=== PATIENT | female | born 1945 | race Caucasian/White ===

== ENCOUNTER 2024-06-04 12:17 | Outpatient (CLI) | payer MEDICARE, OTHER, SELFPAY ==
--- NOTE | ~2024-06-04 | NM_ITS ---
EXAMINATION: NISREEN alegria renal scan DATE: 06/04/2024 14:18 INDICATION: Hydronephrosis TECHNIQUE: 8.1 mCi Tc-99m MAG3 was administered IV. 40 mg furosemide was administered IV immediately afterward. The patient was scanned in the supine position. A posterior abdominal radionuclide angiog ana was obtained. A subsequent time course of static images of the kidneys, ureters, and bladder was obtained. COMPARISON: None FINDINGS: The posterior abdominal radionuclide angiogram and sequential static images show normal size, positio n, and morphology of the right kidney. No evident left renal activity with severe hydronephrosis and severe atrophy noted on report from outside institution CT dated 08/16/2023, images of which are unava ilable for comparison. Peak renal parenchymal uptake was indeterminate min in left kidney and 3.5 min in right kidney (normal peak 3-5 minutes). The relative early renal uptake was calculated at 5% on the left and 95% on the right (<40% is abnormal) however this likely represents scattered activity fr om the adjacent liver with no discernible activity above baseline at the location of the left kidney. No abnormalities of the ureters or bladder are seen. T1/2 for clearance of activity from the right kidney and proximal collecting system was 7 minutes wit h 1600 counts and 9 minutes and 800 counts at 16 minutes. Notes on interpretation: T1/2 <10 minutes is normal, 10-15 minutes is low grade obstruction of questi onable clinical significance, 15-20 minutes is partial obstruction that is likely clinically signific ant, >20 minutes is high grade obstruction. Note that false positives may be seen with supine positio catrachita, dehydration, severely dilated nonobstructed kidney, atonic collecting system, poor renal functi on, and chronic furosemide use. IMPRESSION: 1. No discernible left renal function with severe hydronephrosis and severe atrophy noted at the lef t kidney on CT report from outside institution, images which has not been submitted for comparison. 2. No delay in activity clearance from the right kidney to suggest fixed obstruction. Reviewed, dictated and finalized at location A. IMPRESSION: 1. No discernible left renal function with severe hydronephrosis and severe at rophy noted at the left kidney on CT report from outside institution, images wh ich has not been submitted for comparison. 2. No delay in activity clearance from the right kidney to suggest fixed obstr uction.
--- OUTSIDE RECORDS SUMMARY | 2024-06-04 12:51 | XMS_ITS | Clinical Summary ---
Author Organization [facility] Address [address] [place] [address] Care Team Providers Care Department Of Mathematics Chair Name Role Phone Lb Benitez MD Primary Care Provider [phone] Source Comments [facility],non-owned Affiliates and Associated Physician Practices is amultiple site organization consisting of ambulatory clinics and hospital sitesin [place], [place], [place] and [place]. This disclosure is being madepursuant to the Care Everywhere program and may not contain all information available regarding this patient. Last updated 17.[facility] Social History Tobacco Use Types Packs/Day Years Used Date Smoking Tobacco: Former Cigarettes Smokeless Tobacco: Never Tobacco Cessation:Counseling Given: Not Answered PHQ-2 Answer Date Recorded PHQ2 TOTAL SCORE 0 10/05/2022 Sex and Gender Information Value Date Recorded Sex Assigned at Female 05/27/2022 11:55 AM CDT Gender Identity Female 05/27/2022 11:55 AM CDT Sexual Orientation Straight 05/27/2022 11 :55 AM CDT Plan of Treatment Health Maintenance Due Date Last Done Comments BONE DENSITY TESTING 1945 DTAP/TDAP/TD VACCINES (1 - Tdap) 10/07/1962 PNEUMOCOCCAL VACCINE 50+ (1 of 1 - PCV) 10/07/1993 ZOSTER VACCINE (1 of 2) 10/07/1993 Respiratory Syncytial Virus (RSV) Vaccine Pt: or over 60 yrs (1 - 1-dose 75+ series) 10/07/2018 COVID-19 VACCINE (4 2023-2 5 season) 2023 10/25/2021, 05/19/2020, 04/26/2020 INFLUENZA VACCINE (#1) 2023 DEPRESSION SCREENING 03/18/2024 10/10/2022 MEDICARE AWV CALENDAR YEAR 2024 HEPATITIS B VACCINE Aged Out No longe r eligible based on patient's age to complete this topic HIB VACCINE Aged Out No longer eligi ble based on patient's age to complete this topic HPV VACCINE Aged Out No longer eligi ble based on patient's age to complete this topic MENINGOCOCCAL (Group B) VACCINE SHARED DECISION-MAKING Aged Out No longer eligible based on patient's age to complete this topic MENINGOCOCCAL GROUPS A/C/Y/W VACCINE Aged Out No longer eligible b ased on patient's age to complete this topic Care Teams Department Of Mathematics Chair Relationship Specialty Start Date End Date Lb Benitez MD [address] [place] [address] PCP - General Internal Medicine 09/19/22
--- OUTSIDE RECORDS SUMMARY | 2024-06-04 12:51 | XMS_ITS | Encounter Summary ---
Author Organization [facility] Care Team Providers Care Drill Press Operator Name Role Phone Bill Thomas MD Primary Care Provider + Truman Patel MD Unavailable [phone] Merlin Ambriz MD Unavailable [phone] Bill Thomas MD Primary Care Provider + Vineet Aviles MD Primary Care Provider [phone] Encounter Details Date Type Department Care Team (Latest Contact Info) Description 08/08/2017 Orders Only [facility]IN[facility] Provider, MD Josse [address] [place] [address] Social History Tobacco Use Types Packs/Day Years Used Date Smoking Tobacco: Never Assessed Comments Unknown Sex and Gender Information Value Date Recorded Sex Assigned at Not on file Legal Sex Female 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 Historical Provider [facility] SUSH[facility] TIMMONS Final Result documented in this encounter Visit Diagnoses Not on filedocumented in this encounter Care Teams Drill Press Operator Relationship Specialty Start Date End Date Bill Thomas MD [address] [place] [address] PCP - General Internal Medicine 08/06/18 04/07/19 Bill Thomas MD [address] [place] [address] PCP - General Internal Medicine 04/08/19 11/22/21 Vineet Aviles MD [address] [place] [address] PCP - General Family Medicine 11/23/21 Truman Patel MD [address] [place] [address] Referring Physician Internal Medicine 09/23/18 Merlin Ambriz MD [address] [place] [address] Referring Physician Gastroenterology 09/23/18 documented as of this encounter
--- OUTSIDE RECORDS SUMMARY | 2024-06-04 12:51 | XMS_ITS | Encounter Summary ---
Author Organization [facility] Address [address] [place] [address] Care Team Providers Care Milling Machine Operator Gear Name Role Phone Kaveh Guardado MD Unavailable Truman Patel MD Unavailable [phone] Vineet Aviles MD Primary Care Provider [phone] Encounter Details Date Type Department Care Team (Late st Contact Info) Description 04/03/2024 Prep for Procedure [facility] [address], [place] [id number] Thor Pike MD [facility] [address], [place] [id number] Social History Tobacco Use Types Packs/Day Years Used Date Smoking Tobacco: Former Cigarettes Q uit: 1970 Smokeless Tobacco: Former Alcohol Use Standard Drinks/Week Comments Yes 0 (1 standard drink = 0.6 oz pur e alcohol) occasionally Humiliation, Afraid, Rape, and Kick questionnair e Answer Date Recorded Within the last year, have y ou been afraid of your partner or ex-partner? No 12/31/2022 Within the last year, have y ou been humiliated or emotionally abused in other ways by your partner or ex-partner? No Within the last year, have y ou been kicked, hit, slapped, or otherwise physically hurt by your partner or ex-partner? No 12/31/2022 Within the last year, have y ou been raped or forced to have any kind of sexual activity by your partner or ex-partner? No 12/31/2022 Overall Financial Resource Strain (CARDIA) Answe r Date Recorded How hard is it for you to pa y for the very basics like food, housing, medical care, and heating? Not hard at all 12/31/2022 PHQ-2 Answer Date Recorded Patient Health Questionnaire-2 Score 0 07/09/2023 Hunger Vital Sign Answer Date Recorded Within the past 12 months, y ou worried that your food would run out before you got the money to buy more. Never true 01/01/20 Within the past 12 months, t he food you bought just didn't last and you didn't have money to get more. Never true 12/31/2022 PRAPARE - Transportation Answer Date Re corded In the past 12 months, has l ack of transportation kept you from medical appointments or from getting medications? No 12/16 In the past 12 months, has l ack of transportation kept you from meetings, work, or from getting things needed for daily living? No 12/31/2022 Housing Stability Vital Sign Answer Neel e Recorded In the last 12 months, was t here a time when you were not able to pay the mortgage or rent on time? No 12/31/2022 In the last 12 months, how many places have you lived? 1 12/31/2022 In the last 12 months, was t here a time when you did not have a steady place to sleep or slept in a nursing home (including now)? 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 Answer Date of Assessment Author Status No 12/30/2022 6:15 PM CDT Love Rubin RN Active * Do you have serious difficulty walking or climbing stairs? Answer Date of Assessment Author Status No 12/30/2022 6:15 PM CDT Love Rubin RN Active * Do you have difficulty dressing or bathing? Answer Date of Assessment Author Status No 12/30/2022 6:15 PM CDT Love Rubin RN Active * Because of a physical, mental, or emotional condition, do you have difficulty doing errands alone such as visiting a doctor's office or shopping? Answer Date of Assessment Author Status No 12/30/2022 6:15 PM CDT Love Rubin RN Active documented as of this encounter Mental Status * Because of a physical, mental, or emotional condition, do you have serious difficulty concentrating, remembering, or making decisions? Answer Entry Date Author Status No 12/30/2022 6:15 PM CDT Love Rubin RN Active documented in this encounter Plan of Treatment Upcoming Encounters Date Type Department Care Team (Late st Contact Info) Description 06/09/2024 3:00 PM CDT Office Visit [facility] [address], [address] [facility] [place] [id number] Nader Borges MD [address] [facility] [place] [address] 07/13/2024 10:45 AM CDT Office Visit [facility] [address] [facility] [place], [place] [id number] Truman Patel MD [address] [facility] [place], [place] [id number] Nancy Mejia PA [address] [facility] [address], [address] [place], [place] [address] 10/19/2024 3:00 PM CDT Appointment [facility] [address] [address] Thor Pike MD [address] [place], [place] [id number] documented as of this encounter Goals Goal Patient Goal Type Associated Problems Recent Progress Patient-Stated? Author Patient will return to prior living situation and remain independent in ADLs upon discharge from hospital Lifestyle No Rhina Callejas, NAT INSTRUCTOR documented as of this encounter Visit Diagnoses Not on filedocumented in this encounter Care Teams Milling Machine Operator Gear Relationship Specialty Start Date End Date Vineet Aviles MD [address] [place] [address] PCP - General FAMILY PRACTICE 03/18/22 Kaveh Guardado MD [address] [place], [place] [address] [place] Dietary Supervisor CLINICAL CARDIAC ELECTROPHYSIOLOGY 06/25/17 Truman Patel MD [address] [place], [place] [address] Janet Dietary Supervisor INTERVENTIONAL CARDIOLOGY 07/16/17 documented as of this encounter
--- OUTSIDE RECORDS SUMMARY | 2024-06-04 12:51 | XMS_ITS | Referral Summary ---
Author Organization [facility] [address] [facility] mariann Address [address] [facility] [place] [address] Care Team Providers Care Grinder And Plater Name Role Phone Truman Patel MD Unavailable [phone] Merlin Ambriz MD Unavailable [phone] Vineet Aviles MD Primary Care Provider [phone] Encounters Date Type Department Care Team Description 05/06/[address] [facility] Accountable Care Organization [address] [place] [id number] Yasmin Hastings 04/02/2024 12:08 PM MOLD MOVER - 04/02/2024 11:59 PM MOLD MOVER Hospital Encounter [facility] [address] [place] [address] Dyspnea, unspecified type Discharge Disposition: Discharge to home or self care 04/02/[address] [facility] Medical Group Pulmonary [address] [phone] Christian An MD Med Management 04/02/2024 10:30 AM MOLD MOVER Office Visit [facility] Pulmonary [place] [address] [place] [address] [place] [phone] Christian An MD Dyspnea, unspecified type (Primary Dx); Simple chronic bronchitis (HCC); Gastroesophageal reflux disease without esophagitis; Allergic rhinitis due to pollen, unspecified seasonality 03/31/2024 11:30 AM MOLD MOVER Office Visit [facility] at [address] [place] [address] Vineet Aviles MD Medicare annual wellness visit, subsequent (Primary Dx) 03/30/2024 Telephone [facility] Medicine at [address] [place] [address] Vineet Aviles MD Appointment Request from Last 3 Months Allergies Active Allergy Reactions Criticality Noted Date Comments Pentobarbital Hives Medium 10/29/2017 Pentobarbital Sodium Unknown 08/04/2018 Prednisone Nausea & Vomiting Low 08/26/2015 Medications red yeast rice 600 mg capsule Take 600 mg by mouth daily Active cyanocobalamin (Vitamin B-12) 500 mcg tabletIndication s:Prevention of Vitamin B12 Deficiency Take 1 tablet (500 mcg total) by mouth daily Active coenzyme Q10 100 mg capsule Take 1 tablet by mouth daily 8 Active fluticasone propionate (Flonase Allergy Relief) 50 mcg/actuation nasal sprayIndications :Seasonal allergic rhinitis, unspecified trigger Administer 1 spray into each nostril daily 54.6 mL 1 3 Active cilostazoL (PLETAL) 100 mg tabletIndication s:Peripheral vascular disease Take 1 tablet (100 mg total) by mouth 2 (two) times a day 180 tablet 1 3 Active clopidogreL (PLAVIX) 75 mg tabletIndication s:Peripheral vascular disease Take 1 tablet (75 mg total) by mouth daily 90 tablet 1 3 Active cetirizine (ZyrTEC) 10 mg tabletIndication s:Seasonal allergic rhinitis, unspecified trigger Take 1 tablet (10 mg total) by mouth daily 90 tablet 3 3 Active aspirin 81 mg chewable tabletIndication s:Coronary artery disease involving [place] coronary artery of [place] heart without angina pectoris Take 1 tablet (81 mg total) by mouth daily 90 tablet 3 3 Active alendronate (FOSAMAX) 70 mg tablet Take 1 tablet (70 mg total) by mouth every 7 days Take in the morning with a full glass of water, on an empty stomach, and do not take anything else by mouth or lie down for the next 30 min. 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 3 Active nitroglycerin 400 mcg/spray spray 3 Active montelukast (SINGULAIR) 10 mg tablet Take 1 tablet (10 mg total) by mouth nightly 90 tablet 3 3 Active furosemide (LASIX) 20 mg tablet Take 1 tablet (20 mg total) by mouth daily Active Trelegy Ellipta 100-62.5-25 mcg inhalerIndicatio ns:Simple chronic bronchitis (HCC) Inhale 1 puff daily Rinse mouth with water after use, do not swallow 180 each 1 4 Active trospium (SANCTURA) 20 mg tablet Take 1 tablet (20 mg total) by mouth 2 (two) times a day 4 12/17/19 25 Active atenoloL (TENORMIN) 50 mg tabletIndication s:Pulmonary hypertension (HCC),Hypertensi ve heart disease without heart failure Take 1 tablet (50 mg total) by mouth daily 90 tablet 1 4 Active albuterol HFA (PROVENTIL HFA,VENTOLIN HFA,PROAIR HFA) 90 mcg/actuation inhaler Inhale 2 puffs every 6 (six) hours as needed for wheezing 3 each 1 4 01/22/[address] (PROTONIX) 40 mg EC tablet Take 1 tablet (40 mg total) by mouth daily 90 tablet 5 Active Active Problems Problem Noted Date Diagnosed Date Difficulty breathing 04/04/2023 Actinic keratosis 01/16/2023 Overview (01/16/2023): left forearm Asthma with acute exacerbation 01/16/2023 Benign neoplasm of skin of face 01/16/2023 Overview (01/16/2023): Milia, face Expressed after jose with 11 blade Cervical spondylosis 01/16/2023 Cervicalgia 01/16/2023 Dermatitis 01/16/2023 Overview (01/16/2023): 2. Possible staph infection Plan see scan sheet for discharge instructions. Fatigue 01/16/2023 Hyperlipidemia 01/16/2023 Overview (01/16/2023): Last Assessment & Plan: LDL in March 2021 was 106. She is not tolerant of statin therapy. Continue red yeast rice. Migraine headache 01/16/2023 Palpitations 01/16/2023 Severe acute respiratory syn drome coronavirus 2 (SARS-CoV-2) test result unknown 01/16/2023 Urge incontinence of urine 01/16/2023 Verruca 01/16/2023 Overview (01/16/2023): Rt Forehead. Cryo x 1 now Renal cyst 01/16/2023 Actinic keratosis 01/16/2023 Overview (03/31/2024): left forearm left forearm Benign neoplasm of skin of face 01/16/2023 Overview (03/31/2024): Milia, face Expressed after jose with 11 blade Milia, face Expressed after jose with 11 blade Dermatitis 01/16/2023 Overview (03/31/2024): 2. Possible staph infection Plan see scan sheet for discharge instructions. 2. Possible staph infection Plan see scan sheet for discharge instructions. Viral warts 01/16/2023 Overview (03/31/2024): Rt Forehead. Cryo x 1 now Chest pain 12/30/2022 Shortness of breath 11/14/2022 Abnormal PFT 11/14/2022 Primary hypertension 05/13/2022 Memory loss 07/12/2021 Overview (01/16/2023): Last Assessment & Plan: I recommended a neurology referral for memory loss. Age-related osteoporosis monica bill current pathological fracture 04/11/2021 Assessment & Plan (04/11/2021 2:54 PM MOLD MOVER): Had been on fosamax in the past. Tried to get Prolia, but not covered. Insurance covers Forteo. She does not want to do daily injections. Continue calcium and Vitamin D. Tongue burning sensation 05/24/2020 Assessment & Plan (05/24/2020 11:17 AM MOLD MOVER): No signs of mouth thrush. However, pt is on trelegy that can cause it. Will treat with diflucan. Negative depression screening 05/24/2020 At standard risk for fall 05/24/2020 Post herpetic neuralgia 02/10/2020 Assessment & Plan (05/24/2020 11:20 AM MOLD MOVER): Persistent. Gabapentin helps, will refill for prn use. Assessment & Plan (02/10/2020 11:06 AM MOLD MOVER): Broke out almost 4 weeks ago. Rash is healing well. Due to bothersome pain will try gabapentin. I advised patient to start with night does for few days and then add morning dose. As soon as pain improves, can stop taking it. Rotator cuff tendinitis, right 02/10/2020 Assessment & Plan (02/10/2020 11:07 AM MOLD MOVER): Patient can not take NSAID due to being on Plavix. I administered steroid injection today. This will be 1st since onset. Exercise regimen for home stretches provided to patient. Contact our office if no improvement after treatment within 2-3 weeks, develop new symptoms or feeling worse at any point. Pulmonary hypertension 11/05/2019 Assessment & Plan (05/08/2020 9:30 AM MOLD MOVER): Repeat 2D echocardiogram done in December 2019 shows normal RVSP. Assessment & Plan (11/07/2019 5:53 PM CDT): Will repeat 2D echocardiogram with her next visit to reassess her RVSP. Pelvic pressure in female 11/21/2018 History of nicotine dependence 09/23/2018 Assessment & Plan (10/26/2019 12:46 PM CDT): Stable. She has been a nonsmoker since 1970 Assessment & Plan (04/06/2019 1:49 PM MOLD MOVER): Stable Overactive bladder 09/22/2018 Assessment & Plan (04/07/2021 11:13 AM MOLD MOVER): Stable on Myrbetriq Assessment & Plan (10/26/2019 12:45 PM CDT): Stable on Myrbetriq Assessment & Plan (08/14/2019 2:12 PM CDT): Increase myrbetriq from 25 mg to 50 mg a day. Pt can take 2 tablets of 25 mg until will need next refill. Assessment & Plan (04/06/2019 1:48 PM MOLD MOVER): Stable on Myrbetriq Assessment & Plan (09/23/2018 11:57 AM CDT): Stop Dietrol LA. Start Myrbetriq Peripheral vascular disease 09/22/2018 Assessment & Plan (04/07/2021 11:12 AM MOLD MOVER): Stable on Pletal. Follows with Dr. Pike Assessment & Plan (10/26/2019 12:44 PM CDT): Stable on Pletal. Followed by Dr. Pike Assessment & Plan (04/06/2019 1:48 PM MOLD MOVER): Stable on Pletal Assessment & Plan (09/22/2018 12:51 PM CDT): Stable on cilostazol Hypertensive heart disease without heart failure 09/22/2018 Assessment & Plan (04/07/2021 11:12 AM MOLD MOVER): Stable on atenolol Assessment & Plan (10/26/2019 12:41 PM CDT): Stable on atenolol Assessment & Plan (04/06/2019 1:47 PM MOLD MOVER): Stable on atenolol Assessment & Plan (09/22/2018 12:48 PM CDT): Stable on atenolol BMI 21.0-21.9, adult 09/22/2018 Assessment & Plan (04/06/2019 1:49 PM MOLD MOVER): BMI Follow-up includes: nutrition counseling. Medicare annual wellness visit, subsequent 09/22 Assessment & Plan (03/31/2024 11:52 AM MOLD MOVER): Patient here for annual Medicare wellness visit and for review of complete medical problem list. All the elements of the plan were completed as outlined by CMS. A copy of the prevention plan was given to the patient. I reviewed Medicare Wellness Questionnaire (other physicians involved in care, depression screen, advanced directives), cognitive/memory, and functional assessment. Forms scanned in progress notes. I reviewed and updated the complete problem list, medication list, family history, and immunization records with the patient. I provided preventive counseling and early detection interventions to the patient through health maintenance update and summary of today's office visit. Personalized Prevention Plan Services (PPPS): Immunization: [id number]: UTD. [id number]: UTD. Influenza: Recommended . HepatitisB: Not Applicable. Tetanus: Not Applicable. Shingles: Not Applicable. Cancer Screening: Mammogram: UTD. and about a year ago . PAP Smear: Not Applicable. Prostate Cancer Screening: Not Applicable. Colorectal Cancer Screening: UTD. and Dr. Resendiz about 5 years ago . Lung Cancer Screening: Not Applicable. Others: Diet: Lifestyle education regarding diet discussed. Exercise: Encouraged regular daily exercise. Medication Use: Aspirin use discussion. DEXA Scan: UTD. and Osteoprosis. . Glaucoma Screening: Recommended Annually. Audio Screen ordered? No Diabetes: Not Applicable. Annual Labs: Ordered For Today. Abdominal Aortic Aneurysm Screening: Not Applicable. HIV Screening: Not Applicable. Smoking cessation Counselling: Not Applicable. Subsequent Annual Wellness Visit: Annually Assessment & Plan (01/18/2023 12:51 PM CDT): Patient here for annual Medicare wellness visit and for review of complete medical problem list. All the elements of the plan were completed as outlined by CMS. A copy of the prevention plan was given to the patient. I reviewed Medicare Wellness Questionnaire (other physicians involved in care, depression screen, advanced directives), cognitive/memory, and functional assessment. Forms scanned in progress notes. I reviewed and updated the complete problem list, medication list, family history, and immunization records with the patient. I provided preventive counseling and early detection interventions to the patient through health maintenance update and summary of today's office visit. Personalized Prevention Plan Services (PPPS): Immunization: [id number]: UTD. [id number]: UTD. Influenza: Recommended . HepatitisB: Not Applicable. Tetanus: Not Applicable. Shingles: Not Applicable. Cancer Screening: Mammogram: UTD. and about a year ago . PAP Smear: Not Applicable. Prostate Cancer Screening: Not Applicable. Colorectal Cancer Screening: UTD. and Dr. Resendiz about 5 years ago . Lung Cancer Screening: Not Applicable. Others: Diet: Lifestyle education regarding diet discussed. Exercise: Encouraged regular daily exercise. Medication Use: Aspirin use discussion. DEXA Scan: UTD. and Osteoprosis. . Glaucoma Screening: Recommended Annually. Audio Screen ordered? No Diabetes: Not Applicable. Annual Labs: Ordered For Today. Abdominal Aortic Aneurysm Screening: Not Applicable. HIV Screening: Not Applicable. Smoking cessation Counselling: Not Applicable. Subsequent Annual Wellness Visit: Annually Assessment & Plan (11/23/2021 2:12 PM CDT): Patient here for annual Medicare wellness visit and for review of complete medical problem list. All the elements of the plan were completed as outlined by CMS. A copy of the prevention plan was given to the patient. I reviewed Medicare Wellness Questionnaire (other physicians involved in care, depression screen, advanced directives), cognitive/memory, and functional assessment. Forms scanned in progress notes. I reviewed and updated the complete problem list, medication list, family history, and immunization records with the patient. I provided preventive counseling and early detection interventions to the patient through health maintenance update and summary of today's office visit. Personalized Prevention Plan Services (PPPS): Immunization: [id number]: UTD. Gcubpxg06: UTD. Influenza: Recommended . HepatitisB: Not Applicable. Tetanus: Not Applicable. Shingles: Not Applicable. Cancer Screening: Mammogram: UTD. and about a year ago . PAP Smear: Not Applicable. Prostate Cancer Screening: Not Applicable. Colorectal Cancer Screening: UTD. and Dr. Resendiz about 5 years ago . Lung Cancer Screening: Not Applicable. Others: Diet: Lifestyle education regarding diet discussed. Exercise: Encouraged regular daily exercise. Medication Use: Aspirin use discussion. DEXA Scan: UTD. and Osteoprosis. . Glaucoma Screening: Recommended Annually. Audio Screen ordered? No Diabetes: Not Applicable. Annual Labs: Ordered For Today. Abdominal Aortic Aneurysm Screening: Not Applicable. HIV Screening: Not Applicable. Smoking cessation Counselling: Not Applicable. Subsequent Annual Wellness Visit: Annually Assessment & Plan (09/22/2018 12:53 PM CDT): Negative for depression S/P CABG x 5 10/06/2017 Assessment & Plan (04/06/2019 1:49 PM MOLD MOVER): Stable Coronary artery disease invo lving [place] coronary artery of [place] heart without angina pectoris 07/02/2017 Assessment & Plan (04/07/2021 11:12 AM MOLD MOVER): Stable on atenolol, clopidogrel, and aspirin Assessment & Plan (10/26/2019 12:41 PM CDT): Stable on atenolol, clopidogrel, aspirin, Assessment & Plan (04/06/2019 1:47 PM MOLD MOVER): Stable on atenolol, clopidogrel, aspirin, Assessment & Plan (09/22/2018 12:49 PM CDT): Stable on atenolol, aspirin, clopidogrel. Allergic rhinitis 07/11/2015 Overview (09/23/2018): Continue with p.r.n. Zyrtec and Flonase. Continue with p.r.n. Zyrtec and Flonase. Last Assessment & Plan: Continue with Flonase and Zyrtec. Assessment & Plan (04/07/2021 11:13 AM MOLD MOVER): Stable on Flonase and cetirizine Assessment & Plan (05/08/2020 9:26 AM MOLD MOVER): Continue with Zyrtec and Flonase. I will add Singulair to her current regimen. Assessment & Plan (11/07/2019 5:53 PM CDT): Continue with p.r.n. Zyrtec and Flonase. Assessment & Plan (10/26/2019 12:42 PM CDT): Stable on Flonase and cetirizine Assessment & Plan (05/10/2019 12:26 PM MOLD MOVER): Continue with Flonase and Zyrtec. Assessment & Plan (04/06/2019 1:48 PM MOLD MOVER): Stable on Flonase and cetirizine Assessment & Plan (09/22/2018 12:50 PM CDT): Stable on Flonase and cetirizine Assessment & Plan (08/22/2018 4:53 PM CDT): Continue with Flonase and Zyrtec. COPD (chronic obstructive pulmonary disease) Assessment & Plan (04/07/2021 11:12 AM MOLD MOVER): Stable on Trelegy Ellipta Assessment & Plan (05/08/2020 9:26 AM MOLD MOVER): Continue with trelegy Ellipta and p.r.n. albuterol inhaler. Assessment & Plan (11/07/2019 5:53 PM CDT): Continue with trilogy Ellipta and p.r.n. albuterol inhaler. Assessment & Plan (10/26/2019 12:42 PM CDT): Stable on Trelegy. Patient feels the Ventolin HFA works better than the Proair HFA. Assessment & Plan (05/10/2019 12:27 PM MOLD MOVER): Patient wants to switch back to Trelegy Ellipta.Continue with p.r.n. albuterol inhaler. Assessment & Plan (04/07/2019 11:21 AM MOLD MOVER): Stable on Trelegy. Patient feels the Ventolin HFA works better than the Proair HFA. Assessment & Plan (09/23/2018 11:46 AM CDT): Stable on Symbicort, Spiriva, and albuterol Assessment & Plan (08/22/2018 4:53 PM CDT): COPD is stable. Patient is having sore throat after using trilogy. Will switch her back to Symbicort and Spiriva. Gastroesophageal reflux disease without esophagi tis 07/01/2015 Overview (09/23/2018): Continue with omeprazole. Try to avoid ibuprofen. Last Assessment & Plan: Continue with omeprazole. Assessment & Plan (05/08/2020 9:30 AM MOLD MOVER): Continue with omeprazole. Assessment & Plan (11/07/2019 5:53 PM CDT): Continue with omeprazole. Assessment & Plan (10/26/2019 12:42 PM CDT): Stable on omeprazole Assessment & Plan (05/10/2019 12:26 PM MOLD MOVER): Continue with omeprazole. Assessment & Plan (04/06/2019 1:47 PM MOLD MOVER): Stable on omeprazole Assessment & Plan (09/22/2018 12:50 PM CDT): Stable on omeprazole Assessment & Plan (08/22/2018 4:53 PM CDT): Continue with omeprazole. Resolved Problems Problem Noted Date Diagnosed Date Resolved Date Puncture wound of finger of right hand 08/14/2019 05/24/2020 Assessment & Plan (08/14/2019 2:07 PM CDT): Wound care instruction. Keep area clean and dry. Apply topical antibiotic and new dressing daily until it heals. Come back to recheck if no improvement after treatment or if gets worse at any point. Keep hand elevated to improve edema. Pt is up to date on Tdap Cystitis with hematuria 11/21/201810/16 Assessment & Plan (09/07/2019 10:31 AM CDT): Drink plenty of fluids Assessment & Plan (11/21/2018 2:24 PM CDT): Drink plenty of fluids Risk for falls 09/22/2018 05/24/2020 Assessment & Plan (09/22/2018 12:53 PM CDT): Low risk for falls Immunizations Immunization Administration Dates Next Due Influenza, Trivalent, High D ose, Split, Preservative Free, Intramuscular 12/27/2023 Influenza, Unspecified 05/24/2022(Deferred: Lety ent decision) [employer] SARS-CoV-2 Monovalent Vaccination (12+ Yrs) PURPLE 10/25/2021,05/19/2020,04/26/2020 Pneumococcal Conjugate PCV 13 06/10/2014 Pneumococcal Polysaccharide PPV23 12/18/2011 Td, adsorbed 12/11/1999 Tdap 11/19/2013 ZOSTER Recombinant 05/24/2022(Deferred: Patient Refused) Social History Tobacco Use Types Packs/Day Years Used Date Smoking Tobacco: Former Cigarettes 1 10 1 960 - 1969 Smokeless Tobacco: Never Tobacco Cessation:Counseling Given: Not Answered Comments:Pt quit 1969 Alcohol Use Standard Drinks/Week Comments Yes 0 (1 standard drink = 0.6 oz pur e alcohol) socially not weekly AUDIT-C Answer Date Recorded Q1: How often do you have a drink containing alcohol? Never 03/31/2024 Q2: How many drinks containi ng alcohol do you have on a typical day when you are drinking? Patient does not drink Q3: How often do you have si x or more drinks on one occasion? Never 03/31/2024 PHQ-2 Answer Date Recorded PHQ-2 Total Score (If total score is 3 or more points, staff should administer the PHQ-9) 0 03/31/2024 PHQ-9 Answer Date Recorded PHQ-9 Total Score 0 03/31/2024 Comments Unknown Sex and Gender Information Value Date Recorded Sex Assigned at Not on file Legal Sex Female 7:02 AM MOLD MOVER Gender Identity Not on file Sexual Orientation Not on file Last Filed Vital Signs Vital Sign Reading Time Taken Comments Blood Pressure 124/86 04/02/2024 10:28 AM MOLD MOVER Pulse 76 04/02/2024 10:28 AM MOLD MOVER Temperature 36.9 C (98.4 F) 04/02/2024 10:28 AM MOLD MOVER Respiratory Rate 18 04/02/2024 10:28 AM MOLD MOVER Oxygen Saturation 95% 04/02/2024 10:28 AM MOLD MOVER Inhaled Oxygen Concentration - - Weight 47.6 kg (105 lb) 04/02/2024 10:28 AM MOLD MOVER Height 154.9 cm (5' 1 ) 04/02/2024 10:28 AM MOLD MOVER Body Mass Index 19.84 04/02/2024 10:28 AM MOLD MOVER Plan of Treatment Not on file Procedures Procedure Name Priority Date/Time Associated Diagnosis Comments XR CHEST PA LATERAL 2 VIEWS Schedule Routine, Read Routine (OP Routine) 04/02/2024 12:32 PM MOLD MOVER Dyspnea, unspecified type DEXA AXIAL SKELETON BONE DENSITY 1 OR MORE SITES Schedule Routine, Read Routine (OP Routine) 06/15/2022 1:32 PM CDT Menopause from Last 3 Months or Most Recently Relevant to Health Maintenance Results * XR Chest Pa Lateral 2 Views (04/02/2024 12:32 PM MOLD MOVER) Anatomical Region Laterality Modality Body, Chest N/A Computed Radiogr aphy 04/03/2024 4:04 PM MOLD MOVER Narrative 04/03/2024 4:05 PM MOLD MOVER EXAM DESCRIPTION: XR CHEST PA LATERAL 2 VIEWS REASON FOR STUDY: Dyspnea Chronic sob. Poor historian TECHNIQUE: 2 radiographic view(s) of the chest. COMPARISON: None FINDINGS: LUNGS: No focal opacity, pleural effusion, or pneumothorax. Emphysema. HEART/MEDIASTINUM: Cardiac silhouette normal in size. Mediastinal and hilar contours appear normal. Median sternotomy. Thoracic aorta is minimally calcified. LINES/TUBES: None. BONES: No acute osseous abnormality. IMPRESSION: COPD. No active pulmonary disease. THIS IS AN ELECTRONICALLY VERIFIED FINAL REPORT 04/03/2024 4:05 PM - Electronically signed by Aris Balderas M.D. KT: PRAVEEN Report ID: [id number] Reading Location: [id number] Procedure Note Aris Balderas MD - 04/03/2024 EXAM DESCRIPTION: XR CHEST PA LATERAL 2 VIEWS REASON FOR STUDY: Dyspnea Chronic sob. Poor historian TECHNIQUE: 2 radiographic view(s) of the chest. COMPARISON: None FINDINGS: LUNGS: No focal opacity, pleural effusion, or pneumothorax. Emphysema. HEART/MEDIASTINUM: Cardiac silhouette normal in size. Mediastinal andhilar contours appear normal. Median sternotomy. Thoracic aorta is minimally calcified. LINES/TUBES: None. BONES: No acute osseous abnormality. IMPRESSION: COPD. No active pulmonary disease. THIS IS AN ELECTRONICALLY VERIFIED FINAL REPORT 04/03/2024 4:05 PM - Electronically signed by Aris Balderas M.D. KT: PRAVEEN Report ID: [id number] Reading Location: [id number] Christian An MD IMG XR PROCEDURES Soraida l Result * Dexa Axial Skeleton Bone Density 1 or 2 Site (06/15/2022 1:32 PM CDT) Anatomical Region Laterality Modality Body N/A Mammography 06/15/2022 1:49 PM CDT Narrative 06/15/2022 1:50 PM CDT EXAM DESCRIPTION: DEXA AXIAL SKELETON BONE DENSITY 1 OR MORE SITES REASON FOR STUDY: 76 y/o year old F with given history of screening. 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 LEFT HIP: Total BMD is 0.625 g/cm2 T-score is -2.6 This is a 7.5% decrease in comparison to prior exam which is statistically significant. Femoral neck BMD is 0.499 g/cm2 T-score is -3.1 FRAX: FRAX not reported due to T-scores of hip, femoral neck and/or spine being at or below -2.5 (Osteoporosis). IMPRESSION: Osteoporosis REFERENCE: Bone mineral density: Normal (T-score above or = -1.0) Low bone mass (T-score between -1.0 and -2.5) replaces the previously used term osteopenia Osteoporosis (T-score = or below -2.5) Medical evaluation for secondary causes of low bone mineral density may be appropriate. FRAX is a World Health Organization validated fracture risk assessment tool that calculates a person's 10 year probability of a major osteoporosis related fracture and hip fracture. According to the National Osteoporosis Foundation guidelines, postmenopausal women and men age 50 or older with low bone mass and a 10 year probability of a major osteoporosis related fracture = or greater than 20% or a 10 year probability of a hip fracture = or greater than 3% should be considered for treatment. For further information, including treatment recommendations, please refer to the 2013 ISCD Official Positions (http://www.iscd.org) and the NOF's Clinician's Guide to Prevention and Treatment of Osteoporosis (http://www.nof.org/professionals/clinical-guidelines) THIS IS AN ELECTRONICALLY VERIFIED FINAL REPORT 06/15/2022 1:50 PM - Electronically signed by Loren Bassett M.D. TW: TIM Report ID: [id number] Reading Location: [id number] Procedure Note Loren Bassett MD - 06/15/2022 EXAM DESCRIPTION: DEXA AXIAL SKELETON BONE DENSITY 1 OR MORE SITES REASON FOR STUDY: 76 y/o year old F with given history of screening. 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 LEFT HIP: Total BMD is 0.625 g/cm2 T-score is -2.6 This is a 7.5% decrease in comparison to prior exam which is statistically significant. Femoral neck BMD is 0.499 g/cm2 T-score is -3.1 FRAX: FRAX not reported due to T-scores of hip, femoral neck and/or spine beingat or below -2.5 (Osteoporosis). IMPRESSION: Osteoporosis REFERENCE: Bone mineral density: Normal (T-score above or = -1.0) Low bone mass (T-score between -1.0 and -2.5) replaces thepreviously used term osteopenia Osteoporosis (T-score = or below -2.5) Medical evaluation for secondary causes of low bone mineral density may be appropriate. FRAX is a World Health Organization validated fracture risk assessmenttool that calculates a person's 10 year probability of a major osteoporosisrelated fracture and hip fracture. According to the National OsteoporosisFoundation guidelines, postmenopausal women and men age 50 or older with low bonemass and a 10 year probability of a major osteoporosis related fracture = or greater than 20% or a 10 year probability of a hip fracture = or greaterthan 3% should be considered for treatment. For further information, including treatment recommendations, please referto the 2013 ISCD Official Positions (http://www.iscd.org) and the NOF's Clinician's Guide to Prevention and Treatment of Osteoporosis (http://www.nof.org/professionals/clinical-guidelines) THIS IS AN ELECTRONICALLY VERIFIED FINAL REPORT 06/15/2022 1:50 PM - Electronically signed by Loren Bassett M.D. 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
--- OUTSIDE RECORDS SUMMARY | 2024-06-04 12:51 | XMS_ITS | Clinical Summary ---
Author Organization [facility] Address [address] [place] [address] Care Team Providers Care [place] Machine Operator Name Role Phone Kaveh Guardado MD Unavailable Truman Patel MD Unavailable [phone] Vineet Aviles MD Primary Care Provider [phone] Allergies Active Allergy Reactions Criticality Noted Date Comments Pentobarbital Hives 10/29/2017 Prednisone Nausea and Vomiting Low 08/26/2015 Medications atenolol 50 MG tablet Take 1 tablet (50 mg total) by mouth daily. 3 Active cetirizine 10 MG tablet Take 1 tablet (10 mg total) by mouth daily. 5 Active Coenzyme Q10 (COQ-10) 100 MG Cap CR Take 1 tablet by mouth 2 (two) times a day. 8 Active fluticasone-umecl idinium-vilantero l 100-62.5-25 MCG/INH AEROSOL POWDER, BREATH ACTIVATED Inhale 1 puff into the lungs daily. 9 Active famotidine 20 MG tablet Take 1 tablet (20 mg total) by mouth daily. Active Cholecalciferol (VITAMIN D) 50 MCG (1999) CapIndications:Vi tamin D insufficiency Take 1 tablet by mouth daily. 30 capsule 0 Active fluticasone propionate 50 MCG/ACT nasal spray 2 sprays by Each Nostril route daily. 1 Active montelukast 10 MG tablet Take 1 tablet (10 mg total) by mouth daily. 1 Active Red Yeast Rice Extract (RED YEAST RICE OR) Take 1 capsule by mouth 2 (two) times a day. 1200 mg capsules Active Calcium Carb-Cholecalcife rol (CALCIUM 1000 + D) 1000-20 MG-MCG Tab Take 1 tablet by mouth daily. 3 Active mirabegron ER (MYRBETRIQ) 50 MG 24 hr tablet Take 1 tablet (50 mg total) by mouth daily. 3 Active aspirin EC 81 MG tablet Take 1 tablet (81 mg total) by mouth daily. 30 tablet 3 Active Additional Information Patient not taking.Reported on 12/30/2023 donepezil (ARICEPT) 5 MG TabIndications:MC I (mild cognitive impairment) Take 1 tablet (5 mg total) by mouth nightly at bedtime. 30 tablet 11 3 Active Additional Information Patient not taking.Reported on 12/30/2023 nitroglycerin (NITROLINGUAL) 0.4 MG/SPRAY spray Place 1 spray (0.4 mg total) under the tongue every 5 (five) minutes as needed for Chest Pain. Maximum number of doses: 3. If no relief call 911 4.9 g 1 3 Active albuterol sulfate HFA 108 (90 Base) MCG/ACT inhaler Inhale 2 puffs into the lungs every 6 (six) hours as needed. 18 g 3 Active diclofenac sodium (VOLTAREN) 1 % gel Apply 2 g topically 4 (four) times daily. 100 g 4 Active Additional Information Patient not taking.Reported on 12/30/2023 furosemide (LASIX) 20 MG tablet Take 1 tablet (20 mg total) by mouth daily. 30 tablet 4 Active Additional Information Patient not taking.Reported on 12/30/2023 donepezil (ARICEPT) 10 MG TabIndications:MC I (mild cognitive impairment) Take 1 tablet (10 mg total) by mouth nightly at bedtime. 90 tablet 9 4 Active Additional Information Patient not taking.Reported on 12/30/2023 trospium (SANCTURA) 20 MG tablet Take 1 tablet (20 mg total) by mouth 2 (two) times daily. 4 025 Active cilostazol (PLETAL) 100 MG tablet Take 1 tablet (100 mg total) by mouth 2 (two) times daily. 180 tablet 2 4 Active clopidogrel (PLAVIX) 75 MG tablet Take 1 tablet (75 mg total) by mouth daily. 90 tablet 2 4 Active pantoprazole EC (PROTONIX) 40 MG tablet 5 Active Active Problems Problem Noted Date Diagnosed Date Encounter for medication refill 04/04/2023 Severe acute respiratory syn drome coronavirus 2 (SARS-CoV-2) test result unknown 04/04/2023 Difficulty breathing 04/04/2023 Actinic keratosis 01/16/2023 Overview (04/04/2023): left forearm left forearm Asthma with acute exacerbation ([facility]/HCC) 023 Benign neoplasm of skin of face 01/16/2023 Overview (04/04/2023): Milia, face Expressed after jose with 11 blade Milia, face Expressed after jose with 11 blade Cervical spondylosis 01/16/2023 Cervicalgia 01/16/2023 Dermatitis 01/16/2023 Overview (04/04/2023): 2. Possible staph infection Plan see scan sheet for discharge instructions. 2. Possible staph infection Plan see scan sheet for discharge instructions. Fatigue 01/16/2023 Migraine headache 01/16/2023 Palpitations 01/16/2023 Renal cyst 01/16/2023 Urge incontinence of urine 01/16/2023 Viral warts 01/16/2023 Overview (04/04/2023): Rt Forehead. Cryo x 1 now Chest pain 12/30/2022 Abnormal PFT 11/14/2022 Memory loss 07/12/2021 Assessment & Plan (07/12/2021 2:22 PM CDT): I recommended a neurology referral for memory loss. Age-related osteoporosis wit hout current pathological fracture 04/11/2021 Overview (04/17/2021): Last Assessment & Plan: Had been on fosamax in the past. Tried to get Prolia, but not covered. Insurance covers Forteo. She does not want to do daily injections. Continue calcium and Vitamin D. Pulmonary hypertension ([facility]) 020 Overview (08/12/2020): Last Assessment & Plan: Repeat 2D echocardiogram done in December 2019 shows normal RVSP. Hypertensive heart disease without heart failure 09/22/2018 Overview (08/12/2020): Last Assessment & Plan: Stable on atenolol Assessment & Plan (10/31/2020 1:15 PM CDT): Her blood pressure is well controlled. Continue atenolol. Peripheral vascular disease 09/22/2018 Overview (08/12/2020): Last Assessment & Plan: Stable on Pletal. Followed by Dr. Piek Assessment & Plan (01/07/2024 5:52 PM CDT): She is not having claudication symptoms. Continue cilostazol and dual antiplatelet therapy. Assessment & Plan (08/04/2023 4:36 PM CDT): She is not having claudication symptoms. Continue cilostazol and dual antiplatelet therapy. Assessment & Plan (05/07/2022 2:57 PM HEALTH WORKER): She is not having claudication symptoms. Continue cilostazol and dual antiplatelet therapy. Assessment & Plan (07/12/2021 2:22 PM CDT): Continue aspirin, clopidogrel and cilostazol. Assessment & Plan (10/31/2020 1:14 PM CDT): Her claudication symptoms are stable on cilostazol. Continue cilostazol 100 mg twice a day. CKD (chronic kidney disease) stage 3, GFR 30-59 ml/min 08/25/2018 Claudication 12/09/2017 Angina, class III 11/12/2017 Chest pain, unspecified type 10/17/2017 S/P CABG x 5 10/06/2017 History of tobacco abuse 10/06/2017 Coronary artery disease invo lving [place] coronary artery of [place] heart without angina pectoris 07/02/2017 Overview (11/06/2021): She previously had coronary artery bypass surgery in 2004. She underwent stress testing and subsequent cardiac catheterization with me in 2017 that shows stenosis in the LAD and atretic AMANDA graft. She subsequently underwent PCI to the LAD. Assessment & Plan (01/07/2024 5:49 PM CDT): She is not having angina. Continue aspirin, atenolol, clopidogrel. She is not tolerant of statin therapy and continues with red yeast rice. Assessment & Plan (08/04/2023 4:35 PM CDT): She is not having angina. Continue aspirin, atenolol, clopidogrel. She is not tolerant of statin therapy and continues with red yeast rice. Assessment & Plan (11/05/2022 3:15 PM CDT): She is not having angina. Continue aspirin, atenolol, clopidogrel. She is not tolerant of statin therapy and continues with red yeast rice. Assessment & Plan (05/07/2022 2:56 PM HEALTH WORKER): She is not having angina. Continue aspirin, atenolol, clopidogrel. She is not tolerant of statin therapy and continues with red yeast rice. Assessment & Plan (11/06/2021 11:49 AM CDT): No chest pain Continued on ASA, metoprolol, and statin Assessment & Plan (07/12/2021 2:21 PM CDT): She is not having angina. Continue aspirin, atenolol, clopidogrel. She is not tolerant of statin therapy and continues with red yeast rice. Assessment & Plan (10/31/2020 1:14 PM CDT): She is not having angina. Continue aspirin, atenolol, clopidogrel. She is not tolerant of statins and she does not want other lipid-lowering therapy. She would prefer red yeast rice is taking 2400 mg/day. Localized edema 07/02/2017 Allergic rhinitis 07/11/2015 Overview (08/25/2018): Overview: Continue with p.r.n. Zyrtec and Flonase. Last Assessment & Plan: Continue with Flonase and Zyrtec. COPD (chronic obstructive pu lmonary disease) ([facility]) 07/01/2015 Overview (08/25/2018): Overview: Patient feels significant improvement in her dyspnea after starting Trelegy which will be continued. Last Assessment & Plan: COPD is stable. Patient is having sore throat after using trilogy. Will switch her back to Symbicort and Spiriva. Gastro-esophageal reflux disease without esophag itis 07/01/2015 Overview (08/25/2018): Overview: Continue with omeprazole. Try to avoid ibuprofen. Last Assessment & Plan: Continue with omeprazole. Hyperlipidemia Assessment & Plan (01/07/2024 5:50 PM CDT): LDL in December 2022 was 113. She is not tolerant of statin therapy. Continue red yeast rice. Assessment & Plan (08/04/2023 4:36 PM CDT): LDL in March 2021 was 106. She is not tolerant of statin therapy. Continue red yeast rice. Assessment & Plan (11/05/2022 3:14 PM CDT): LDL in March 2021 was 106. She is not tolerant of statin therapy. Continue red yeast rice. Assessment & Plan (05/07/2022 2:57 PM HEALTH WORKER): LDL in March 2021 was 106. She is not tolerant of statin therapy. Continue red yeast rice. Assessment & Plan (11/06/2021 11:50 AM CDT): Statin therapy is well tolerated without any reports of Statin-associated muscle symptoms (HORTENCIA). Target goal of LDL < 70 Ref Range & Units 04/06/21 1105 Cholesterol <200 mg/dL 187 HDL > OR = 50 mg/dL 54 Triglycerides <150 mg/dL 158 High LDL mg/dL (calc) 106 High Comment: Reference range: <100 Assessment & Plan (10/31/2020 1:15 PM CDT): We will repeat a lipid panel. She has not had lipids since 2018. She is not tolerant of statins. I would just like to see how well the red yeast rice is controlling her lipids. Essential hypertension Assessment & Plan (01/07/2024 5:50 PM CDT): Her blood pressure in the office is well controlled. Encouraged home BP monitoring. Continue antihypertensive therapy. Assessment & Plan (08/04/2023 4:35 PM CDT): Her blood pressure in the office is not well controlled, but has been well controlled in the past. Encouraged home BP monitoring. Continue antihypertensive therapy. Assessment & Plan (11/05/2022 3:15 PM CDT): Her blood pressure in the office is well controlled. Continue antihypertensive therapy. Assessment & Plan (05/07/2022 2:56 PM HEALTH WORKER): Her blood pressure in the office is well controlled. Continue antihypertensive therapy. Assessment & Plan (11/06/2021 11:49 AM CDT): Blood pressure is well controlled with no changes in regimen at this time Encouraged to continue to monitor at home and log and call office with any concerns in future. Assessment & Plan (07/12/2021 2:23 PM CDT): Her blood pressure in the office is well controlled. Continue antihypertensive therapy. Resolved Problems Problem Noted Date Diagnosed Date Resolved Date Encounter for laboratory test 12/30/2023 01/06/2024 Encounter for cervical Pap s mear with pelvic exam 04/04/2023 04/08/2023 Encounters Date Type Department Care Team Description 05/22/2024 Telephone [facility], [address] [address] Truman Patel MD Dental Problem 05/19/2024 6:15 AM HEALTH WORKER - 05/19/2024 6:27 AM HEALTH WORKER Hospital Encounter [facility] [address] [place] [address] Thor Pike MD Discharge Disposition: Home or Self Care (Routine Discharge) 05/19/2024 Travel 05/18/2024 Orders Only [facility] [place] [address] [place] [address] Thor Pike MD 04/03/2024 Telephone [facility], [address] [address] Thor Pike MD Schedule Procedure (RLE ARTERIOGRAM) 04/03/2024 Prep for Procedure [facility], [address] [address] Thor Pike MD 04/03/2024 Orders Only [facility], [address] [address] Thor Pike MD 04/02/2024 11:30 AM HEALTH WORKER Office Visit [facility], [address] [place] [address] Thor Pike MD Follow Up 04/02/2024 Travel 03/28/2024 3:35 PM HEALTH WORKER - 03/28/2024 11:11 PM HEALTH WORKER Emergency [facility] Emergency Room [address] [place] [address] Nicolás Garner, Chest Pain Discharge Disposition: Home or Self Care (Routine Discharge) 03/28/2024 Travel 03/24/2024 1:57 PM HEALTH WORKER - 03/24/2024 11:59 PM HEALTH WORKER Hospital Encounter [facility] [place] [address] [place] [address] Thor Pike MD Discharge Disposition: Home or Self Care (Routine Discharge) 03/24/2024 Travel from Last 3 Months Immunizations Name Administration Dates Next Due Fluzone High Dose (IIV, trivalent, 0.5mL) 2023 PFIZER COVID-19 (ORIGINAL FO RMULATION, PURPLE CAP) mRNA, LNP-S, PF, 30 MCG/0.3 ML DOSE 10/25/2021,05/19/2020,04/26/2020 Pneumococcal (Pneumovax 23) 12/18/2011 Pneumococcal (Prevnar 13) 06/10/2014 Td (TDVAX) 12/11/1999 Tdap (Generic) 11/19/2013 Family History Medical History Relation Comments Cancer Father Heart Disease Father Heart Disease Mother Family history is positive for CAD Other Relation Status Comments Father Mother Other Social History Tobacco Use Types Packs/Day Years Used Date Smoking Tobacco: Former Cigarettes Q uit: 1970 Smokeless Tobacco: Former Tobacco Cessation:Counseling Given: Not Answered Alcohol Use Standard Drinks/Week Comments Yes 0 [...] money to buy more. Never true 01/01/20 23 Within the past 12 months, t he [...] place to sleep or slept in a fci (including now)? 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 Not on file Not on file Not on file Last Filed Vital Signs Vital Sign Reading Time Taken Comments Blood Pressure 178/90 04/02/2024 11:25 AM HEALTH WORKER Pulse 73 03/28/2024 8:00 PM HEALTH WORKER Temperature 36.7 C (98.1 F) 03/28/2024 3:40 PM HEALTH WORKER Respiratory Rate 20 03/28/2024 8:00 PM HEALTH WORKER Oxygen Saturation 99% 03/28/2024 8:00 PM HEALTH WORKER Inhaled Oxygen Concentration - - Weight 47.7 kg (105 lb 3.2 oz) 04/02/2024 11:25 AM HEALTH WORKER Height 154.9 cm (5' 1 ) 04/02/2024 11:25 AM HEALTH WORKER Body Mass Index 19.88 04/02/2024 11:25 AM HEALTH WORKER Plan of Treatment Upcoming Encounters Date Type Department Care Team (Late st Contact Info) Description 06/09/2024 3:00 PM CDT Office Visit [facility] [address], [address] [place] [address] Nader Borges MD [address] [place] [address] 07/13/2024 10:45 AM CDT Office Visit [facility], [facility] [address] [place], [place] [id number] Truman Patel MD [facility]. [facility] [address] [place] [address] Nancy Mejia PA [address], [address] [place] [address] 10/19/2024 3:00 PM CDT Appointment [facility] [place] [address] [place] [address] Thor Pike MD [facility]. [facility] [address] [place], [place] [id number] Health Maintenance Due Date Last Done Comments ASCVD Statin 1945 Zoster Vaccines (1 of 2) 10/07/1993 Annual Medicare Wellness Visit 10/07/2008 RSV Immunization or 60+ Years (1 - 1-dose 75+ series) 10/07/2018 COVID-19 Vaccine (4 - season) 2023 10/25/2021, 05/19/2020, 04/26/2020 DTaP, Tdap and Td Vaccines (2 - Td or Tdap) 11/20/2023 11/19/2013, 12/11/1999 ASCVD LDL 01/01/2024 12/31/2022, 07/17, 08/17/2013 PHQ-2 (Physician Bryan) 03/18/2024 07/09/2023 Pneumococcal Vaccine: 65+ Years Completed 06/10/2014, 12/18/2011 Dexa Scan (General) Completed 06/15/2022, 06/15/2022, 10/17/2020, Additional history exists Influenza Adult Completed 12/27/2023 Meningococcal B Vaccine Aged Out No l onger eligible based on patient's age to complete this topic Meningococcal Vaccine Aged Out No denita franky eligible based on patient's age to complete this topic RSV Immunizations Under 20 Months Aged Out No longer eligible based on patient's age to complete this topic Goals Goal Patient Goal Type Associated Problems Recent Progress Patient-Stated? Author Patient will return to prior living situation and remain independent in ADLs upon discharge from hospital Lifestyle No Rhina Callejas, TRACTOR CRANE ENGINEER Procedures Procedure Name Priority Date/Time Associated Diagnosis Comments PROTHROMBIN TIME, VENOUS Routine 05/19/2024 6:37 AM HEALTH WORKER Claudication BASIC METABOLIC PANEL Routine 05/19/2024 6:37 AM HEALTH WORKER Claudication CBC W/DIFF AUTOMATED Routine 05/19/2024 6:37 AM HEALTH WORKER Claudication CAD (coronary artery disease) HC URINALYSIS AUTO W/O MICRO STAT 03/28/2024 8:58 PM HEALTH WORKER TROPONIN, QUANT STAT 03/28/2024 5:56 PM HEALTH WORKER ECG 12-LEAD STAT 03/28/2024 5:54 PM HEALTH WORKER XR CHEST PORTABLE STAT 03/28/2024 3:5 4 PM HEALTH WORKER TROPONIN, QUANT STAT 03/28/2024 3:50 PM HEALTH WORKER COMPREHENSIVE METABOLIC PANEL STAT 03/28/2024 3:50 PM HEALTH WORKER CBC W/DIFF AUTOMATED STAT 03/28/2024 3:50 PM HEALTH WORKER ECG 12-LEAD STAT 03/28/2024 3:39 PM HEALTH WORKER USV ART REST W NEYDA LOW EXT Routine 03/24/2024 2:53 PM HEALTH WORKER PVD (peripheral vascular disease) with claudication LIPID PANEL Routine 12/31/2022 5:15 AM CDT from Last 3 Months or Most Recently Relevant to Health Maintenance Results * PROTIME/INR, VENOUS (05/19/2024 6:37 AM HEALTH WORKER) PROTIME 11.1 10.2 - 12.9 SEC 05/19/2024 7:07 AM HEALTH WORKER [facility] INR 1.0 05/19/2024 7:07 AM HEALTH WORKER [facility] Comment: Recommended INR Therapeutic Goals: 2.0-3.0 Routine Therapy 2.5-3.5 Mechanical Prosthetic Valves (High Risk) 05/19/2024 6:37 AM HEALTH WORKER us Thor Pike MD LABORATORY Final Result [facility] [address] [place] [address], [place] [phone] * (ABNORMAL) BASIC METABOLIC PANEL (05/19/2024 6:37 AM HEALTH WORKER) [facility] GLUCOSE 97 70 - 99 MG/DL 05/19/2024 7:13 AM [facility] BUN 16 7 - 18 MG/DL 05/19/2024 7:13 AM [facility] CREATININE S/P/B 0.94 0.55 - 1.02 MG/DL 05/19/2024 7:13 AM [facility] SODIUM S/P/B 144 136 - 145 MMOL/L 05/19/2024 7:13 AM [facility] POTASSIUM S/P/B 4.0 3.5 - 5.1 MMOL/L 05/19/2024 7:13 AM [facility] CHLORIDE S/P/B 111 97 - 115 MMOL/L 05/19/2024 7:13 AM [facility] CO2 30.0 21 - 32 MMOL/L 05/19/2024 7:13 AM [facility] CALCIUM S/P/B 9.4 8.5 - 10.1 MG/DL 05/19/2024 7:13 AM [facility] ANION GAP 3.0 2 - 10 MMOL/L 05/19/2024 7:13 AM [facility] BUN CREATININE RATIO 17.0 6 - 26 05/19/2024 7:13 AM [facility] GFR ESTIMATE 61(L) >90 ML/MIN/1.7 3 M2 05/19/2024 7:13 AM [facility] Comment: NOTE: eGFR is not calculated for patients <18 years of age or gender unknown. This is an estimated GFR calculation using the new CKD EPI creatinine equation without race and so does not require a correction factor for race. This estimated GFR should not be used for calculating drug doses. 05/19/2024 6:3 7 AM HEALTH WORKER us Thor Pike MD LABORATORY Final Result [facility] [address] [place] [address], * (ABNORMAL) CBC W/DIFF AUTOMATED (05/19/2024 6:37 AM HEALTH WORKER) Only the most recent of2 resultswithin the time period is included. Pathologist [facility] WBC 7.29 4.5 - 11.0 x10'3/uL 05/19/2024 7:07 AM [facility] RBC 4.32 4.20 - 5.40 x10'6/uL 05/19/2024 7:07 AM [facility] HGB 13.8 12.0 - 16.0 G/DL 05/19/2024 7:07 AM [facility] HCT 43.1 38.0 - 48.0 % 05/19/2024 7:07 AM [facility] MCV 99.8(H) 81.0 - 99.0 FL 05/19/2024 7:07 AM [facility] MCH 31.9(H) 27.0 - 31.0 PG 05/19/2024 7:07 AM [facility] MCHC 32.0 32.0 - 36.0 G/DL 05/19/2024 7:07 AM [facility] RDW 13.5 11.5 - 14.5 % 05/19/2024 7:07 AM [facility] PLT 178 130 - 400 x10'3/uL 05/19/2024 7:07 AM [facility] MPV 10.8 9.3 - 12.2 FL 05/19/2024 7:07 AM [facility] DIFFERENTIAL TYPE AUTOMATED DIFFERENTIAL 05/19/2024 7:07 AM [facility] NEUTROPHILS % 55.2 % 05/19/2024 7:07 AM [facility] LYMPHOCYTES % 30.7 % 05/19/2024 7:07 AM [facility] MONOCYTES % 8.1 % 05/19/2024 7:07 AM [facility] EOSINOPHILS 5.1 % 05/19/2024 7:07 AM [facility] BASOPHILS 0.8 % 05/19/2024 7:07 AM [facility] IMMATURE GRANS % 0.1 % 05/20/19 7:07 AM [facility] ABS. NEUTROPHILS 4.02 1.80 - 7.70 x10'3/uL 05/19/2024 7:07 AM [facility] ABS. LYMPHOCYTES 2.24 1.00 - 4.80 x10'3/uL 05/19/2024 7:07 AM [facility] ABS. MONOCYTES 0.59 0.24 - 0.86 x10'3/uL 05/19/2024 7:07 AM [facility] ABS. EOSINOPHILS 0.37(H) 0.04 - 0.36 x10'3/uL 05/19/2024 7:07 AM [facility] ABS. BASOPHILS 0.06 0.01 - 0.08 x10'3/uL 05/19/2024 7:07 AM [facility] ABS. IMMATURE GRANULOCYTES 0.01 0.00 - 0.49 x10'3/uL 05/19/2024 7:07 AM [facility] 05/19/2024 6:37 AM HEALTH WORKER Thor Pike MD LABORATORY Final Result [facility] [address] [place] [address], [place] [phone] * (ABNORMAL) URINALYSIS (03/28/2024 8:58 PM HEALTH WORKER) SPECIMEN TYPE URINE, UNSPECIFIED 03/28/2024 8:58 PM HEALTH WORKER [facility] COLOR (U) YELLOW 03/28/2024 9:12 PM HEALTH WORKER [facility] TRANSPARENCY TURBID 03/28/2024 9:12 PM HEALTH WORKER [facility] SPECIFIC GRAVITY (U) 1.006 1.001 - 1.030 03/28/2024 9:12 PM HEALTH WORKER [facility] U PH 7.0 5.0 - 9.0 03/28/2024 9:12 PM HEALTH WORKER [facility] LEUKOCYTES (U) 250(A) NEGATIVE 03/28/2024 9:12 PM HEALTH WORKER [facility] NITRITES 1+(A) NEGATIVE 03/28/2024 9:12 PM HEALTH WORKER [facility] PROTEIN RANDOM (U) NEGATIVE <30 MG/DL 03/28/2024 9:12 PM HEALTH WORKER [facility] GLUCOSE (U) NORMAL NORMAL MG/DL 03/28/2024 9:12 PM HEALTH WORKER [facility] KETONES MG/DL (U) NEGATIVE NEGATIVE MG/DL 03/28/2024 9:12 PM HEALTH WORKER [facility] UROBILINOGEN NORMAL NORMAL MG/DL 03/28/2024 9:12 PM HEALTH WORKER [facility] BILIRUBIN (U) NEGATIVE NEGATIVE MG/DL 03/28/2024 9:12 PM [facility] BLOOD (U) 2+(A) NEGATIVE 03/28/2024 9:12 PM HEALTH WORKER [facility] MUCUS RARE /LPF 03/28/2024 9:12 PM HEALTH WORKER [facility] WBC/HPF 24(H) <6 /HPF 03/28/2024 9:12 PM HEALTH WORKER [facility] RBC/HPF 8(H) <6 /HPF 03/28/2024 9:12 PM HEALTH WORKER [facility] BACTERIA (U) RARE(A) NONE /HPF 03/28/2024 9:12 PM HEALTH WORKER [facility] SQUAMOUS EPITHELIALS RARE /HPF 03/28/2024 9:12 PM HEALTH WORKER [facility] URINE SPECIMEN / Unknown 03/28/2024 8:58 PM HEALTH WORKER Nicolás Garner DO URINE ORDERABLES Final Result Performing Organization Address City/[facility]/ZIP Co de Phone Number [facility] [address] [place] [address], [place] [phone] * TROPONIN, QUANT (03/28/2024 5:56 PM HEALTH WORKER) Only the most recent of2 resultswithin the time period is included. TROPONIN I HIGH SENSITIVITY 5 <54 ng/L 03/28/2024 6:34 PM HEALTH WORKER [facility] Comment: HIGH DOSES OF BIOTIN, TROPONIN-SPECIFIC AUTOANTIBODIES, AND ANTIBODY THERAPY CONTAINING HAMA MAY INTERFERE WITH THIS TEST RESULT. CORRELATION TO CLINICAL HISTORY AND PRESENTATION RECOMMENDED. 03/28/2024 5:56 PM HEALTH WORKER us Nicolás Garner DO LABORATORY Final Result [facility] [address] [place] [id number], [place] [phone] * ECG 12 lead (03/28/2024 5:54 PM HEALTH WORKER) Only the most recent of2 resultswithin the time period is included. 03/28/2024 5:54 PM HEALTH WORKER Narrative [facility] - 03/28/2024 6:[address] [address] Test Date: 2024-03-28 Pat Name: ARABELLA [facility] Department: 41 Room: EXAM10 Gender: Female Cell Attendant Helper: [id number] : 1945 Requested By: CHIKIS NIEVES Order Number: [id number] Reading MD: Olesya Cook Measurements Intervals Warren Rate: 74 P: 55 OH: 152 QRS: 77 QRSD: 84 T: 72 QT: 395 QTc: 440 Interpretive Statements SINUS RHYTHM Compared to ECG 03/28/2024 15:39:54 Short OH interval no longer present T-wave abnormality no longer present TH WORKER Procedure Note Olesya Cook MD - 03/28/2024 [facility] [address] Test Date: 2024-03-28 Pat Name: ARABELLA [facility] Department: 41 Room: EXAM10 Gender: Female Cell Attendant Helper: [id number] : 1945 Requested By: CHIKIS NIEVES Order Number: [id number] Reading MD: Olesya Cook Measurements Intervals Warren Rate: 74 P: 55 OH: 152 QRS: 77 QRSD: 84 T: 72 QT: 395 QTc: 440 Interpretive Statements SINUS RHYTHM Compared to ECG 03/28/2024 15:39:54 Short OH interval no longer present T-wave abnormality no longer present TH WORKER us Nicolás Garner DO ECG ORDERABLES Final Result [facility] * XR CHEST PORTABLE (03/28/2024 3:54 PM HEALTH WORKER) Anatomical Region Laterality Modality Chest Radiographic Deirdre ging 03/28/2024 3:56 PM HEALTH WORKER Impressions 03/28/2024 3:58 PM HEALTH WORKER IMPRESSION: Faint opacification left midlung. This may relate to infiltrative changes. Neoplasm is not excluded. Follow-up in 8 weeks is recommended to ensure resolution. Referred By: Interpreted By: Manuel Bustamante MD, 03/28/2024 3:56 PM Narrative 03/28/2024 3:58 PM HEALTH WORKER [address] [address] Procedure(s): XR CHEST PORTABLE Date of service: 03/28/2024 3:42 PM Provided clinical information: 78 years, Female, CP chest pain. Procedure and materials: AP portable Comparison studies: March 08, 2023. Findings: Patient is poststernotomy. Cardiac silhouette is within normal limits. Advanced degenerative changes about the shoulders bilaterally left greater than right. There is diffuse coarsening of the interstitium present in the right and left lung with increased opacification present in the left mid lung. This may relate to infiltrative changes. This is new as compared back to February 2023. Follow-up radiograph in 8 weeks is recommended to ensure resolution. Procedure Note Manuel Bustamante MD - 03/28/[address] [address] Procedure(s): XR CHEST PORTABLE Date of service: 03/28/2024 3:42 PM Provided clinical information: 78 years, Female, CP chest pain. Procedure and materials: AP portable Comparison studies: March 08, 2023. Findings: Patient is poststernotomy. Cardiac silhouette is within normal limits.Advanced degenerative changes about the shoulders bilaterally left greaterthan right. There is diffuse coarsening of the interstitium present in the right andleft lung with increased opacification present in the left mid lung. Thismay relate to infiltrative changes. This is new as compared back toFebruary 2023. Follow-up radiograph in 8 weeks is recommended to ensureresolution. IMPRESSION: Faint opacification left midlung. This may relate to infiltrative changes.Neoplasm is not excluded. Follow-up in 8 weeks is recommended to ensureresolution. Referred By: Interpreted By: Maunel Bustamante MD, 03/28/2024 3:56 PM us Nicolás Garner DO GENERAL IMAGING Final Result * (ABNORMAL) COMPREHENSIVE METABOLIC PANEL (03/28/2024 3:50 PM HEALTH WORKER) GLUCOSE 110(H) 70 - 99 MG/DL 03/28/2024 4:54 PM HEALTH WORKER [facility] BUN 11 7 - 18 MG/DL 03/28/2024 4:54 PM HEALTH WORKER [facility] CREATININE S/P/B 0.94 0.55 - 1.02 MG/DL 03/28/2024 4:54 PM HEALTH WORKER [facility] SODIUM S/P/B 141 136 - 145 MMOL/L 03/28/2024 4:54 PM [facility] POTASSIUM S/P/B 3.8 3.5 - 5.1 MMOL/L 03/28/2024 4:54 PM [facility] CHLORIDE S/P/B 109 97 - 115 MMOL/L 03/28/2024 4:54 PM HEALTH WORKER [facility] CO2 30.0 21 - 32 MMOL/L 03/28/2024 4:54 PM [facility] CALCIUM S/P/B 8.8 8.5 - 10.1 MG/DL 03/28/2024 4:54 PM HEALTH WORKER [facility] BILIRUBIN TOTAL S/P/B 0.3 0.2 - 1.2 MG/DL 03/28/2024 4:54 PM [facility] Comment: THIS ASSAY IS NOT RECOMMENDED FOR PATIENTS UNDERGOING TREATMENT WITH ELTROMBOPAG DUE TO THE POTENTIAL FOR FALSELY ELEVATED RESULTS. TOTAL PROTEIN S/P/B 6.6 6.4 - 8.2 G/DL 03/28/2024 4:54 PM [facility] ALBUMIN S/P/B 3.3(L) 3.4 - 5.0 G/DL 03/28/2024 4:54 PM [facility] AST 11(L) 15 - 37 U/L 03/28/2024 4:54 PM [facility] ALT 11(L) 14 - 55 U/L 03/28/2024 4:54 PM [facility] ALKALINE PHOSPHATASE S/P/B 92 50 - 136 U/L 03/28/2024 4:54 PM [facility] ANION GAP 2.0 2 - 10 MMOL/L 03/28/2024 4:54 PM [facility] BUN CREATININE RATIO 11.7 6 - 26 03/28/2024 4:54 PM [facility] A/G RATIO 1.0 1.0 - 2.0 RATIO 03/28/2024 4:54 PM [facility] GFR ESTIMATE 61(L) >90 ML/MIN/1.7 3 M2 03/28/2024 4:54 PM [facility] Comment: NOTE: eGFR is not calculated for patients <18 years of age or gender unknown. This is an estimated GFR calculation using the new CKD EPI creatinine equation without race and so does not require a correction factor for race. This estimated GFR should not be used for calculating drug doses. 03/28/2024 3:50 PM HEALTH WORKER us Nicolás Garner DO LABORATORY Final Result [facility] [address] [place] [address], [place] [phone] * USV ART REST W NEYDA LOW EXT (03/24/2024 2:53 PM HEALTH WORKER) Anatomical Region Laterality Modality Extremity Vascular Ultraso und 03/24/2024 2:01 PM HEALTH WORKER Narrative 03/24/2024 10:32 PM HEALTH WORKER ARTERIAL DOPPLER - [facility] BILATERAL [facility] Pat.Name: ARABELLA YA Pat.ID: [id number] .Date: 03/24/2024 Refer.: [id number], Glendy chacko Exam Time: 2:01:00 PM Study Type:DANIA VS Arterial Doppler Legs KT Height: 61 in Age: 7 1945,78Y Sex: F Sonogrphr: Alex Jonas RVT Pat. Stat.:Outpatient History / Clinical:known disease, previous NEYDA, 03-25-2023, R=0.65, L=0.56 Procedures: Doppler waveforms, Digit PPG, Systolic Pressures w/NEYDA Race: W ++++++++++++++++++++++++++++++++++++ SUMMARY: ++++++++++++++++++++++++++++++++++++ [place] NEYDA Criteria: >1.30 = falsely elevated, calcified vessels; 1.00-1.29 = no signif ischemia at rest ; .80-.99 = mild PAD, asymptomatic; .50-.79 = moderate PAD, claudication; <.50 = severe PAD, rest pain; <.30 = critical PAD, necrosis, poor healing (Digits: DBI >.60 Normal; <.60 Abnormal) (Positive Stress eval: NEYDA decrease of >.20 or >20% pressure drop) Right leg: Common Femoral waveform is triphasic, high amplitude; Popliteal monophasic, low amplitude; Posterior Tibial monophasic, medium amplitude with NEYDA 0.69 ; DP/Anterior Tibial monophasic, medium amplitude with NEYDA 0.519 . Digit flow by PPG is low amplitude with DBI 0.434 . Left leg: Common Femoral waveform is triphasic, high amplitude; Popliteal monophasic, medium amplitude; Posterior Tibial monophasic, low amplitude with NEYDA 0.558 ; DP/Anterior Tibial monophasic, low amplitude with NEYDA 0.488 . Digit flow by PPG is low amplitude with DBI 0.388 . CONCLUSION:NEYDA right leg 0.69, with toe index 0.434 , in the range of moderate ischemia, claudication. Waveforms suggestive of femoral-popliteal disease, small vessel disease. NEYDA left leg 0.56, with toe index 0.388 , in the range of moderate ischemia, claudication and possible rest pain. Waveforms suggestive of femoral-popliteal disease, small vessel disease. Recommend follow up as symptoms warrant. ++++++++++++++++++++++++++++++++++++ MEASUREMENTS: ++++++++++++++++++++++++++++++++++++ PRESSURES Right Brachial Brach P 129 mmHg Right Ankle DP AnkleDP P 67 mmHg Right Ankle PT AnklePT P 89 mmHg Right Great Toe GreatToe P 56 mmHg Right NEYDA PT NEYDA PT 0.69 Right NEYDA DP NEYDA DP 0.519 Right TBI TBI 0.434 Left Brachial Brach P 121 mmHg Left Ankle DP AnkleDP P 63 mmHg Left Ankle PT AnklePT P 72 mmHg Left Great Toe GreatToe P 50 mmHg Left NEYDA PT NEYDA PT 0.558 Left NEYDA DP NEYDA DP 0.488 Left TBI TBI 0.388 <Electronic Signature> 03/24/2024 10:32 PM Thor Pike M.D. Procedure Note Thor Pike MD - 03/24/2024 ARTERIAL DOPPLER - [facility] Pat.Name: YUCELIAJORGE ARABELLA M Pat.ID: [id number] .Date: 03/24/2024 Refer.: [id number], Glendy chacko Exam Time: 2:01:00 PM Study Type:DANIA VS Arterial Doppler Legs KT Height: 61 in Age: 7 1945,78Y Sex: F Sonogrphr: Alex Jonas RVT Pat. Stat.:Outpatient History / Clinical:known disease, previous NEYDA, 03-25-2023, R=0.65, L=0.56 Procedures: Doppler waveforms, Digit PPG, Systolic Pressures w/NEYDA Race: W ++++++++++++++++++++++++++++++++++++ SUMMARY: ++++++++++++++++++++++++++++++++++++ [place] NEYDA Criteria: >1.30 = falsely elevated, calcified vessels; 1.00-1.29 = no signif ischemia at rest ; .80-.99 = mild PAD, asymptomatic; .50-.79 = moderate PAD, claudication; <.50 = severe PAD, rest pain; <.30 = critical PAD, necrosis, poor healing (Digits: DBI >.60 Normal; <.60 Abnormal) (Positive Stress eval: NEYDA decrease of >.20 or >20% pressure drop) Right leg: Common Femoral waveform is triphasic, high amplitude; Popliteal monophasic, low amplitude; Posterior Tibial monophasic, medium amplitude with NEYDA 0.69 ; DP/Anterior Tibial monophasic, medium amplitude with NEYDA 0.519 . Digit flow by PPG is low amplitude with DBI 0.434 . Left leg: Common Femoral waveform is triphasic, high amplitude; Popliteal monophasic, medium amplitude; Posterior Tibial monophasic, low amplitude with NEYDA 0.558 ; DP/Anterior Tibial monophasic, low amplitude with NEYDA 0.488 . Digit flow by PPG is low amplitude with DBI 0.388 . CONCLUSION:NEYDA right leg 0.69, with toe index 0.434 , in the range of moderate ischemia, claudication. Waveforms suggestive of femoral-popliteal disease, small vessel disease. NEYDA left leg 0.56, with toe index 0.388 , in the range of moderate ischemia, claudication and possible rest pain. Waveforms suggestive of femoral-popliteal disease, small vessel disease. Recommend follow up as symptoms warrant. ++++++++++++++++++++++++++++++++++++ MEASUREMENTS: ++++++++++++++++++++++++++++++++++++ PRESSURES Right Brachial Brach P 129 mmHg Right Ankle DP AnkleDP P 67 mmHg Right Ankle PT AnklePT P 89 mmHg Right Great Toe GreatToe P 56 mmHg Right NEYDA PT NEYDA PT 0.69 Right NEYDA DP NEYDA DP 0.519 Right TBI TBI 0.434 Left Brachial Brach P 121 mmHg Left Ankle DP AnkleDP P 63 mmHg Left Ankle PT AnklePT P 72 mmHg Left Great Toe GreatToe P 50 mmHg Left NEYDA PT NEYDA PT 0.558 Left NEYDA DP NEYDA DP 0.488 Left TBI TBI 0.388 <Electronic Signature> 03/24/2024 10:32 PM Thor Pike M.D. Thor Pike MD [facility] Final Result * (ABNORMAL) LIPID PANEL (12/31/2022 5:15 AM CDT) CHOLESTEROL 204(H) <200 MG/DL 12/31/2022 10:20 AM CDT [facility] TRIGLYCERIDES 145 <150 MG/DL 12/31/2022 10:20 AM CDT [facility] HDL 62 >40.0 MG/DL 12/31/2022 10:20 AM CDT [facility] LDL (CALCULATED) 113(H) <100 MG/DL 12/31/2022 10:20 AM CDT [facility] NON HDL CHOLESTEROL 142(H) <130 MG/DL 12/31/2022 10:20 AM CDT [facility] CHOL/HDL RATIO 3.3 0.0 - 4.5 12/31/2022 10:20 AM CDT [facility] VLDL CALCULATION 29 5 - 55 MG/DL 12/31/2022 10:20 AM T [facility] LIPID INTERPRETATION 12/31/2022 10:20 AM CDT [facility] Comment: [facility] REPORT RECOMMENDATIONS: ADULT CHILD LOW RISK: CHOLESTEROL <200 <170 TRIGLYCERIDE <150 --- HDL >=60 --- LDL <100 <110 BORDERLINE: CHOLESTEROL 200-239 170-199 TRIGLYCERIDE 150-199 --- HDL 40-59 --- LDL 100-159 110-129 HIGH RISK: CHOLESTEROL >=240 >=200 TRIGLYCERIDE >=200 --- HDL <40 --- LDL >=160 >=130 12/31/2022 5:15 AM CDT Jenny Anderson NP LABORATORY Final Result [facility] [address] [place] [address], from Last 3 Months or Most Recently Relevant to Health Maintenance Insurance [employer] [facility] [employer] [facility] [phone] Advance Directives Documents on File Type Date Recorded Patient Orthotic Fitter Expl anation Legal Documents 11/06/2021 4TH BOOSTER SHOT * Full Code (Latest Code Status on File) Date Activated Date Inactivated Comments 12/30/2022 5:27 PM 12/31/2022 6:13 PM * Full Code Date Activated Date Inactivated Comments 10/29/2017 1:27 PM 10/29/2017 6:40 PM Care Teams [place] Machine Operator Relationship Specialty Start Date End Date Vineet Aviles MD [facility] [address] [place] [address] [place] [address] PCP - General FAMILY PRACTICE 03/18/22 Kaveh Guardado MD [facility] [address] [place] [address] [place] [address] Janet Patient Financial Services Coordinator CLINICAL CARDIAC ELECTROPHYSIOLOGY 06/25/17 Truman Patel MD [facility]. [facility] [address] [place] [address] Janet Patient Financial Services Coordinator INTERVENTIONAL CARDIOLOGY 07/16/17
--- OUTSIDE RECORDS SUMMARY | 2024-06-04 12:51 | XMS_ITS | Clinical Summary ---
Author Organization [facility] [place] [facility] [address] [facility] mariann Address [address] [facility] [place] [address] Care Team Providers Care Camp Maintenance Supervisor Name Role Phone Truman Patel MD Unavailable [phone] Merlin Ambriz MD Unavailable [phone] Vineet Aviles MD Primary Care Provider [phone] Allergies Active Allergy Reactions Criticality Noted Date [...] mg chewable tabletIndication s:Coronary artery disease involving chitimacha coronary artery of chitimacha heart without angina pectoris Take 1 tablet [...] unit tablet Take 1 tablet by mouth lumber tripper before breakfast 90 tablet 3 3 Active [...] osteoporosis wit hout current pathological fracture 04/11/2021 Assessment & Plan (04/11/2021 2:54 PM LENS MAKER): Had been on fosamax in the past. Tried to get Prolia, but not covered. Insurance covers Forteo. She does not want to do daily injections. Continue calcium and Vitamin D. Tongue burning sensation 05/24/2020 Assessment & Plan (05/24/2020 11:17 AM LENS MAKER): No signs of mouth thrush. However, pt is on trelegy that can cause it. Will treat with diflucan. Negative depression screening 05/24/2020 At standard risk for fall 05/24/2020 Post herpetic neuralgia 02/10/2020 Assessment & Plan (05/24/2020 11:20 AM LENS MAKER): Persistent. Gabapentin helps, will refill for prn use. Assessment & Plan (02/10/2020 11:06 AM LENS MAKER): Broke out almost 4 weeks ago. Rash is healing well. Due to bothersome pain will try gabapentin. I advised patient to start with night does for few days and then add morning dose. As soon as pain improves, can stop taking it. Rotator cuff tendinitis, right 02/10/2020 Assessment & Plan (02/10/2020 11:07 AM LENS MAKER): Patient can not take NSAID due to being on Plavix. I administered steroid injection today. This will be 1st since onset. Exercise regimen for home stretches provided to patient. Contact our office if no improvement after treatment within 2-3 weeks, develop new symptoms or feeling worse at any point. Pulmonary hypertension 11/05/2019 Assessment & Plan (05/08/2020 9:30 AM LENS MAKER): Repeat 2D echocardiogram done in December 2019 shows normal RVSP. Assessment & Plan (11/07/2019 5:53 PM CDT): Will repeat 2D echocardiogram with her next visit to reassess her RVSP. Pelvic pressure in female 11/21/2018 History of nicotine dependence 09/23/2018 Assessment & Plan (10/26/2019 12:46 PM CDT): Stable. She has been a nonsmoker since 1970 Assessment & Plan (04/06/2019 1:49 PM LENS MAKER): Stable Overactive bladder 09/22/2018 Assessment & Plan (04/07/2021 11:13 AM LENS MAKER): Stable on Myrbetriq Assessment & Plan (10/26/2019 12:45 PM CDT): Stable on Myrbetriq Assessment & Plan (08/14/2019 2:12 PM CDT): Increase myrbetriq from 25 mg to 50 mg a day. Pt can take 2 tablets of 25 mg until will need next refill. Assessment & Plan (04/06/2019 1:48 PM LENS MAKER): Stable on Myrbetriq Assessment & Plan (09/23/2018 11:57 AM CDT): Stop Dietrol LA. Start Myrbetriq Peripheral vascular disease 09/22/2018 Assessment & Plan (04/07/2021 11:12 AM LENS MAKER): Stable on Pletal. Follows with Dr. Pike Assessment & Plan (10/26/2019 12:44 PM CDT): Stable on Pletal. Followed by Dr. Pike Assessment & Plan (04/06/2019 1:48 PM LENS MAKER): Stable on Pletal Assessment & Plan (09/22/2018 12:51 PM CDT): Stable on cilostazol Hypertensive heart disease without heart failure 09/22/2018 Assessment & Plan (04/07/2021 11:12 AM LENS MAKER): Stable on atenolol Assessment & Plan (10/26/2019 12:41 PM CDT): Stable on atenolol Assessment & Plan (04/06/2019 1:47 PM LENS MAKER): Stable on atenolol Assessment & Plan (09/22/2018 12:48 PM CDT): Stable on atenolol BMI 21.0-21.9, adult 09/22/2018 Assessment & Plan (04/06/2019 1:49 PM LENS MAKER): BMI Follow-up includes: nutrition counseling. Medicare annual wellness visit, subsequent 09/22 Assessment & Plan (03/31/2024 11:52 AM LENS MAKER): Patient here for annual Medicare wellness visit [...] visit. Personalized Prevention Plan Services (PPPS): Immunization: [id number]: UTD. [id number]: UTD. Influenza: Recommended . HepatitisB: Not Applicable. [...] the plan were completed as outlined by [facility]. A copy of the prevention plan was [...] visit. Personalized Prevention Plan Services (PPPS): Immunization: [id number]: UTD. [id number]: UTD. Influenza: Recommended . HepatitisB: Not Applicable. [...] visit. Personalized Prevention Plan Services (PPPS): Immunization: [id number]: UTD. [id number]: UTD. Influenza: Recommended . HepatitisB: Not Applicable. [...] 10/06/2017 Assessment & Plan (04/06/2019 1:49 PM LENS MAKER): Stable Coronary artery disease invo lving chitimacha coronary artery of chitimacha heart without angina pectoris 07/02/2017 Assessment & Plan (04/07/2021 11:12 AM LENS MAKER): Stable on atenolol, clopidogrel, and aspirin Assessment & Plan (10/26/2019 12:41 PM CDT): Stable on atenolol, clopidogrel, aspirin, Assessment & Plan (04/06/2019 1:47 PM LENS MAKER): Stable on atenolol, clopidogrel, aspirin, Assessment & Plan (09/22/2018 12:49 PM CDT): Stable on atenolol, aspirin, clopidogrel. Allergic rhinitis 07/11/2015 Overview (09/23/2018): Continue with p.r.n. Zyrtec and Flonase. Continue with p.r.n. Zyrtec and Flonase. Last Assessment & Plan: Continue with Flonase and Zyrtec. Assessment & Plan (04/07/2021 11:13 AM LENS MAKER): Stable on Flonase and cetirizine Assessment & Plan (05/08/2020 9:26 AM LENS MAKER): Continue with Zyrtec and Flonase. I will add Singulair to her current regimen. Assessment & Plan (11/07/2019 5:53 PM CDT): Continue with p.r.n. Zyrtec and Flonase. Assessment & Plan (10/26/2019 12:42 PM CDT): Stable on Flonase and cetirizine Assessment & Plan (05/10/2019 12:26 PM LENS MAKER): Continue with Flonase and Zyrtec. Assessment & Plan (04/06/2019 1:48 PM LENS MAKER): Stable on Flonase and cetirizine Assessment & Plan (09/22/2018 12:50 PM CDT): Stable on Flonase and cetirizine Assessment & Plan (08/22/2018 4:53 PM CDT): Continue with Flonase and Zyrtec. COPD (chronic obstructive pulmonary disease) Assessment & Plan (04/07/2021 11:12 AM LENS MAKER): Stable on Trelegy Ellipta Assessment & Plan (05/08/2020 9:26 AM LENS MAKER): Continue with trelegy Ellipta and p.r.n. albuterol inhaler. Assessment & Plan (11/07/2019 5:53 PM CDT): Continue with trilogy Ellipta and p.r.n. albuterol inhaler. Assessment & Plan (10/26/2019 12:42 PM CDT): Stable on Trelegy. Patient feels the Ventolin HFA works better than the Proair HFA. Assessment & Plan (05/10/2019 12:27 PM LENS MAKER): Patient wants to switch back to Trelegy Ellipta.Continue with p.r.n. albuterol inhaler. Assessment & Plan (04/07/2019 11:21 AM LENS MAKER): Stable on Trelegy. Patient feels the Ventolin [...] omeprazole. Assessment & Plan (05/08/2020 9:30 AM LENS MAKER): Continue with omeprazole. Assessment & Plan (11/07/2019 5:53 PM CDT): Continue with omeprazole. Assessment & Plan (10/26/2019 12:42 PM CDT): Stable on omeprazole Assessment & Plan (05/10/2019 12:26 PM LENS MAKER): Continue with omeprazole. Assessment & Plan (04/06/2019 1:47 PM LENS MAKER): Stable on omeprazole Assessment & Plan (09/22/2018 [...] 12:53 PM CDT): Low risk for falls Encounters Date Type Department Care Team Description 05/06/2024 [facility]able [facility] Organization [address] [place] [address] Yasmin Hastings 04/02/2024 12:08 PM LENS MAKER - 04/02/2024 11:59 PM LENS MAKER Hospital Encounter [facility] [address] [place], [place] [address] Dyspnea, unspecified type Discharge Disposition: Discharge to home or self care 04/02/2024 10:30 AM LENS MAKER Office Visit [address] [phone] Christian An MD Dyspnea, unspecified type (Primary Dx); Simple chronic bronchitis (HCC); Gastroesophageal reflux disease without esophagitis; Allergic rhinitis due to pollen, unspecified seasonality 04/02/[address] [phone] Christian An MD Med Management 03/31/2024 11:30 AM LENS MAKER Office Visit [facility] at [address] [place] [address] Vineet Aviles MD Medicare annual wellness visit, subsequent (Primary Dx) 03/30/2024 Telephone [facility] at [address] [place] [address] Vineet Aviles MD Appointment Request from Last 3 Months Immunizations Immunization Administration Dates Next Due Influenza, Trivalent, High D ose, Split, Preservative Free, Intramuscular 12/27/2023 Influenza, Unspecified 05/24/2022(Deferred: Lety ent decision) [place] SARS-CoV-2 Monovalent Vaccination (12+ Yrs) PURPLE 10/25/2021,05/19/2020,04/26/2020 Pneumococcal Conjugate PCV 13 06/10/2014 Pneumococcal Polysaccharide PPV23 12/18/2011 Td, adsorbed 12/11/1999 Tdap 11/19/2013 ZOSTER Recombinant 05/24/2022(Deferred: Patient Refused) Surgical History Surgery Date Site/Laterality Comments CORONARY ARTERY BYPASS GRAFT CARPAL TUNNEL RELEASE 03/18/2006 - 03/17/2007 Right CATARACT EXTRACTION 09/15/2014 - 10/15/2014 Right CARDIAC CATHETERIZATION 11/12/2017 Medical History Medical History Date Comments COPD (chronic obstructive pulmonary disease) (HC C) Allergic rhinitis Essential hypertension GERD (gastroesophageal reflux disease) CAD (coronary artery disease) Presence of coronary artery bypass graft stent Overactive bladder IBS (irritable bowel syndrome) Swelling of right foot Family History Medical History Relation Name Comments Alzheimer's disease Father Heart disease Father Kidney disease Father Heart disease Mother Hypertension Mother Parkinsonism Mother Diabetes Other Heart disease Other Hypertension Other Kidney disease Other Tuberculosis Other Relation Name Status Comments Father Mother Other Social History [...] on file Legal Sex Female 7:02 AM LENS MAKER Gender Identity Not on file Sexual Orientation Not on file Obstetrics History Para Term AB IAB SAB Ectopic Multiple Livin g Live Births 1 1 1 Date Outcome GA Total Labor Labor/2nd/3rd Weight Sex Type Anes PTL Alexa A1 A5 Name Clin Term Last Filed Vital Signs Vital Sign Reading Time Taken Comments Blood Pressure 124/86 04/02/2024 10:28 AM LENS MAKER Pulse 76 04/02/2024 10:28 AM LENS MAKER Temperature 36.9 C (98.4 F) 04/02/2024 10:28 AM LENS MAKER Respiratory Rate 18 04/02/2024 10:28 AM LENS MAKER Oxygen Saturation 95% 04/02/2024 10:28 AM LENS MAKER Inhaled Oxygen Concentration - - Weight 47.6 kg (105 lb) 04/02/2024 10:28 AM LENS MAKER Height 154.9 cm (5' 1 ) 04/02/2024 10:28 AM LENS MAKER Body Mass Index 19.84 04/02/2024 10:28 AM LENS MAKER Plan of Treatment Health Maintenance Due Date Last Done Comments Hepatitis B Screening 10/07/1963 Zoster Vaccine (1 of 2) 10/07/1993 Covid-19 Vaccine (5 - 2023-2 5 season) 2023 10/25/2021, 02/18/2021, 05/19/2020, Additional history exists DTaP/Tdap/Td Vaccine (2 - Td or Tdap) 11/20/2023 11/19/2013, 12/11/1999 Osteoporosis Screening-Bone Density Scan 06/15/2024 06/15/2022, 06/15/2022, 10/17/2020 Depression Screening 03/31/2025 03/31/2024, 03/31/2024, 03/27/2023, Additional history exists Fall Risk Assessment 03/31/2025 03/31/2024, 12/27/2023, 01/18/2023, Additional history exists Well Visit 65+ 03/31/2025 03/31/2024, 05/2022, 11/23/2021, Additional history exists Pneumococcal vaccine 65+ Completed 06/10/2014, 04/2011 Influenza Vaccine Completed 12/27/2023 Procedures Procedure Name Priority Date/Time Associated Diagnosis Comments XR CHEST PA LATERAL 2 VIEWS Schedule Routine, Read Routine (OP Routine) 04/02/2024 12:32 PM LENS MAKER Dyspnea, unspecified type DEXA AXIAL SKELETON BONE DENSITY 1 OR MORE SITES Schedule Routine, Read Routine (OP Routine) 06/15/2022 1:32 PM CDT Menopause from Last 3 Months or Most Recently Relevant to Health Maintenance Results * XR Chest Pa Lateral 2 Views (04/02/2024 12:32 PM LENS MAKER) Anatomical Region Laterality Modality Body, Chest N/A Computed Radiogr aphy 04/03/2024 4:04 PM LENS MAKER Narrative 04/03/2024 4:05 PM LENS MAKER EXAM DESCRIPTION: XR CHEST PA LATERAL 2 [...] Aris Balderas M.D. KT: PRAVEEN Report ID: [id number] Reading Location: [id number] Procedure Note Aris Balderas MD - 04/03/2024 [...] Aris Balderas M.D. KT: PRAVEEN Report ID: [id number] Reading Location: [id number] Christian An MD IMG XR PROCEDURES Soraida l Result * Dexa Axial Skeleton Bone Density 1 or 2 Site (06/15/2022 1:32 PM CDT) Anatomical Region Laterality Modality Body N/A Mammography 06/15/2022 1:49 PM CDT Narrative 06/15/2022 1:50 PM CDT EXAM DESCRIPTION: DEXA AXIAL SKELETON BONE DENSITY 1 OR MORE SITES REASON FOR STUDY: 76 y/o year old F with given history of screening. Game Trapper/Model: FitStar A (S/N [id number]) CLINICAL INFORMATION: Current height: 60.5 inches Maximum [...] Loren Bassett M.D. TW: TW Report ID: [id number] Reading Location: [id number] Procedure Note Loren Bassett MD - 06/15/2022 EXAM DESCRIPTION: DEXA AXIAL SKELETON BONE DENSITY 1 OR MORE SITES REASON FOR STUDY: 76 y/o year old F with given history of screening. Game Trapper/Model: Hologic Horizon A (S/N [id number]) CLINICAL INFORMATION: Current height: 60.5 inches Maximum [...] Loren Bassett M.D. TW: TW Report ID: [id number] Reading Location: [id number] Vineet Aviles MD IMG DXA PROCEDURES Final Result from Last 3 Months or Most Recently Relevant to Health Maintenance Insurance [employer] MEDICARE SOLUTIONS Advance Directives For more information, please contact: [phone] Documents on File Type Date Recorded Patient Geodetic Surveyor Technologist Expl anation Power of Plastic Molder 11/03/2020 11:08 AM Care Teams Camp Maintenance Supervisor Relationship Specialty Start Date End Date Vineet Aviles MD PCP - General Family Medicine 11/23/21 Truman Patel MD Referring Physician Internal Medicine 09/23/18 Merlin Ambriz MD Referring Physician Gastroenterology 09/23/18
--- OUTSIDE RECORDS SUMMARY | 2024-06-04 12:51 | XMS_ITS | Encounter Summary ---
Author Organization [facility] Care Team Providers Care Oil Speculator Name Role Phone Bill Thomas MD Primary Care Provider + Truman Patel MD Unavailable [phone] Merlin Ambriz MD Unavailable [phone] Bill Thomas MD Primary Care Provider + Vineet Aviles MD Primary Care Provider [phone] Encounter Details Date Type Department Care Team (Latest Contact Info) Description 07/25/2017 Orders Only [facility] CLINCONV Provider, MD Josse [address] [place] [address] Social History Tobacco Use Types Packs/Day Years Used Date Smoking Tobacco: Never Assessed Comments Unknown Sex and Gender Information Value Date Recorded Sex Assigned at Not on file 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 Historical Provider [facility] SUSHIL TIMMONS Final Result documented in this encounter Visit Diagnoses Not on filedocumented in this encounter Care Teams Oil Speculator Relationship Specialty Start Date End Date Bill hTomas MD [address] [place] [address] PCP - General Internal Medicine 08/06/18 04/07/19 Bill Thomas MD [address] [place] [address] PCP - General Internal Medicine 04/08/19 11/22/21 Vineet Aviles MD [address] [place] [address] PCP - General Family Medicine 11/23/21 Truman Patel MD [address] [place] [address] Referring Physician Internal Medicine 09/23/18 Merlin Ambriz MD [address] [place] [address] Referring Physician Gastroenterology 09/23/18 documented as of this encounter
--- OUTSIDE RECORDS SUMMARY | 2024-06-04 12:51 | XMS_ITS | Encounter Summary ---
Author Organization [facility] Address [facility] [place] [address] Care Team Providers Care Director Statistical Programming Name Role Phone Bill Thomas MD Primary Care Provider [phone] Kaveh Guardado MD Unavailable Truman Patel MD Unavailable [phone] None, Provider Primary Care Provider Unavaila Vineet Anton MD Primary Care Provider [phone] Encounter Details Date Type Department Care Team (Late Contact Info) Description 08/13/2017 Abstract [facility] at [address] [address] Ericka Young MA Social History Tobacco Use Types Packs/Day Years Used Date Smoking Tobacco: Former Cigarettes Q uit: 1972 Smokeless Tobacco: Never Alcohol Use Standard Drinks/Week Comments Yes 0 (1 standard drink = 0.6 oz pur e alcohol) occasionally Comments Unknown Sex and Gender Information Value Date Recorded Sex Assigned at Female 04/02/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, [address] [place] [address] Nader Borges MD [address] [facility] [place] [address] 07/13/2024 10:45 AM CDT Office Visit [facility] [address] [facility] [place] [address] Truman Patel MD Three [facility]. [address] [place], [place] [address] Nancy Mejia PA [address] [facility], [address] [place] [address] 10/19/2024 3:[address] [facility] [place] [address] Thor Pike MD Three [facility]. [facility] [address] [place], [place] [id number] documented as of this encounter Procedures Procedure Name Priority Date/Time Associated Diagnosis Comments BASIC METABOLIC PANEL Routine 08/07/2017 LIPID PANEL Routine 08/07/2017 documented in this encounter Results * (ABNORMAL) BASIC METABOLIC PANEL (08/07/2017) SODIUM S/P/B 141 POTASSIUM S/P/B 4.4 CO2 23 CHLORIDE S/P/B 107 GLUCOSE 88 mg/dL CALCIUM S/P/B 9.4 BUN 14 CREATININE S/P/B 0.73 0.5 - 1.0 EGFR AFR. AMER. 94(A) <=90 EGFR NON-AFR. AMER. 82 <=90 08/07/2017 [facility] Final Result * LIPID PANEL (08/07/2017) CHOLESTEROL 178 HDL 62 TRIGLYCERIDES 95 LDL (CALCULATED) 100 08/07/2017 us Doc [facility] Final Result documented in this encounter Visit Diagnoses Not on filedocumented in this encounter Additional Health Concerns Infection Onset Date Last Indicated Resolved Time COVID-19 Rule Out 03/08/2023 03/08/2023 03/08/2023 1:51 PM PIECE GOODS CLERK documented as of this encounter Care Teams Director Statistical Programming Relationship Specialty Start Date End Date Bill Thomas MD [address] [place] [address] PCP - General 08/08/11 10/24/21 Dave Art MD PCP - General 10/25/21 01/04/22 Vineet Aviles MD PCP - General FAMILY PRACTICE 03/18/22 Kaveh Guardado MD [address] [place] [address] [place] Director Cardiovascular CLINICAL CARDIAC ELECTROPHYSIOLOGY 06/25/17 Truman Patel MD [address] [place] [address] [place] Director Cardiovascular INTERVENTIONAL CARDIOLOGY 07/16/17 documented as of this encounter
--- OUTSIDE RECORDS SUMMARY | 2024-06-04 12:51 | XMS_ITS | Encounter Summary ---
Author Organization [facility] Care Team Providers Care Pipe Joints Supervisor Name Role Phone Bill Thomas MD Primary Care Provider + Truman Patel MD Unavailable [phone] Merlin Ambriz MD Unavailable [phone] Bill Thomas MD Primary Care Provider + Vineet Aviles MD Primary Care Provider [phone] Encounter Details Date Type Department Care Team (Latest Contact Info) Description 01/25/2017 Orders Only [facility] CLINCONV Provider, MD Josse [address] [place] [address] Social History Tobacco Use Types Packs/Day Years Used Date Smoking Tobacco: Never Assessed Comments Unknown Sex and Gender Information Value Date Recorded Sex Assigned at Not on file 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 Historical Provider Final Res ult documented in this encounter Visit Diagnoses Not on filedocumented in this encounter Care Teams Pipe Joints Supervisor Relationship Specialty Start Date End Date Bill Thomas MD [address] [place] [address] PCP - General Internal Medicine 08/06/18 04/07/19 Bill Thomas MD [address] [place] [address] PCP - General Internal Medicine 04/08/19 11/22/21 Vineet Aviles MD [address] [place] [address] PCP - General Family Medicine 11/23/21 Truman Patel MD [address] [place] [address] Referring Physician Internal Medicine 09/23/18 Merlin Ambriz MD [address] [place] [address] Referring Physician Gastroenterology 09/23/18 documented as of this encounter
--- OUTSIDE RECORDS SUMMARY | 2024-06-04 12:51 | XMS_ITS | Clinical Summary ---
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 Gender Identity Not on file Sexual Orientation Not on file Plan of Treatment Health Maintenance Due Date Last Done Comments DEXA Bone Density 1945 Hepatitis C Virus (HCV) Screening 1945 TdaP Immunization 1945 Pneumococcal Immunization (5 0+ years) (1 of 1 - PCV) 10/07/1993 Zoster Immunization (1 of 2) 10/07/1993 Respiratory Syncytial Virus (RSV) Immunization (Adult) (1 - 1-dose 75+ series) 10/07/2018 Influenza Immunization (#1) 2023 SARS-COV-2 Immunization ( season) 2023 Hepatitis B Immunization Aged Out No longer eligible based on patient's age to complete this topic Meningococcal Immunization (ACWY) Aged Out No longer eligible based on patient's age to complete this topic Rotavirus Immunization Aged Out No lo nger eligible based on patient's age to complete this topic
== END 2024-06-04 12:18 | disposition home or self-care (01) ==
LOC: ANHIMG 12:27
PROVIDERS: PCP Family Medicine; Visit Provider Physician Assistant Medical
DX: N13.30 Unspecified hydronephrosis (principal)
CPT/HCPCS: 78708; A9562; J1940